=== PATIENT | female | born 2000 | race Caucasian/White ===

== ENCOUNTER 2021-10-24 09:34 | Observation (INO) | payer OTHER, MEDICAID, SELFPAY ==
--- NOTE | 2021-10-24 09:34 | LDADM ---
This patient, Scarlett Pritchard, was admitted to Labor/Delivery/Recovery 106 on 10/24/21 at 09:34. Plans for labor, pain management and were discussed with patient. Patient/family oriented to hospital policies and general routines including ID bracelet, bed and alarms, visiting hours, pain management, procedures, bathroom and other care routines, personal items, smoking policy, room service/diet and guest tray routines, security routines, and visiting hours. Patient/Family are encouraged to report perceived risks to care and to ask questions if they do not understand what they are told or what they should do. See OBIX for further documentation.
[2021-10-24 11:45] VITALS: BMI 29.3
--- NOTE | 2021-10-27 07:29 | PM.OBTRLD ---
OB - Triage/Final Diagnosis Visit Information Date of evaluation: 10/24/21 Reason for evaluation: threatened labor Comments/Additional reasons for admission: I have assessed the risk for this patient, Scarlett Pritchard, and determined that she would benefit from observation care.
== END 2021-10-24 12:25 | disposition home or self-care (01) ==
LOC: ANHLDR 12:26
PROVIDERS: Admitting Provider Obstetrics & Gynecology; PCP Pediatrics; Visit Provider Obstetrics & Gynecology
DX: O47.9 False labor, unspecified (principal); Z3A.00 Weeks of gestation of pregnancy not specified
CPT/HCPCS: G0378; G0379

== ENCOUNTER 2021-10-27 02:00 | Inpatient (IN) | payer OTHER, MEDICAID, SELFPAY ==
[2021-10-27] VITALS (119 sets, daily range): BP systolic 82–127; BP diastolic 25–86; PULSE 60–174; RESP 14–18; TEMP 36.1–36.9; O2SAT 98–100; BMI 29.6
--- NOTE | 2021-10-27 02:00 | LDADM ---
This patient, Scarlett Pritchard, was admitted to Labor/Delivery/Recovery 106 on 10/27/21 at 02:00. Plans for labor, pain management and were discussed with patient. Patient/family oriented to hospital policies and general routines including ID bracelet, bed and alarms, visiting hours, pain management, procedures, bathroom and other care routines, personal items, smoking policy, room service/diet and guest tray routines, security routines, and visiting hours. Patient/Family are encouraged to report perceived risks to care and to ask questions if they do not understand what they are told or what they should do. See OBIX for further documentation.
[2021-10-27 02:41] LABS: Basophils Percent Auto 0.3 % (0.2-1.2); Eosinophils Percent Auto 0.3 % (0-4.4); Hematocrit 32.6 % (37.0-47.0); Hemoglobin 10.8 g/dL (12.0-15.0); Immature Granulocyte Absolute 0.03 K/mm3 (0.00-0.031); Immature Granulocyte Percent A 0.4 % (0-0.5); Lymphocytes Absolute Auto 1.07 K/mm3 (0.9-3.2); Lymphocytes Percent Auto 14.7 % (18.3-44.2); Mean Corpuscular HGB Conc 33.1 g/dl (32-36); Mean Corpuscular Hemoglobin 29.1 pg (26-34); Mean Corpuscular Volume 87.9 fl (80-100); Mean Platelet Volume 10.6 fl (7.4-10.4); Monocytes Absolute Auto 0.8 K/mm3 (0.1-0.6); Monocytes Percent Auto 11.2 % (2.6-8.5); Neutrophils Absolute Auto 5.3 K/mm3 (1.3-6.7); Neutrophils Percent Auto 73.1 % (45.5-73.1); Platelet Count Result 208 k/mm3 (150-375); Red Blood Count 3.71 M/mm3 (4.2-5.4); White Blood Count 7.3 K/mm3 (4.5-10.0)
[2021-10-27] MEDS: LACTATED RINGERS 1,000 ML 125 ML IV CONT ×2 (02:50→03:34)
--- NOTE | 2021-10-27 03:19 | WPDANESEPP ---
Anes - Eval Pre Procedure Procedure: Labor epidural Date/Time: 10/27/21 03:19 Surgeon: Alpesh Preop Diagnosis: Abd pain with contractions Pre Op Diagnosis: leaking fluid Patient Data Age: 21 Gender: F Height: 1.7 m Weight: 85.73 kg Last Vital Signs Temp 98.3 F 10/27/21 02:32 Pulse 80 10/27/21 03:16 BP 109/71 10/27/21 03:16 Pulse Ox 99 10/27/21 03:18 O2 Del Method Room Air 10/27/21 02:31 Allergies Allergy/AdvReac Type Severity Reaction Status Date / Time No Known Allergies Allergy Verified 10/24/21 12:35 Home Medications Medication Instructions Recorded Confirmed Type prenat.vits,shannan,ite-nfxn-vhbju 1 tablet PO DAILY 10/27/21 10/27/21 History Laboratory Tests 10/27/21 10/27/21 02:32 02:32 WBC 7.3 K/mm3 K/mm3 (4.5-10.0) RBC 3.71 M/mm3 L M/mm3 (4.2-5.4) Hgb 10.8 g/dL L g/dL (12.0-15.0) Hct 32.6 % L % (37.0-47.0) MCV 87.9 fl fl (80-100) MCH 29.1 pg pg (26-34) MCHC 33.1 g/dl g/dl (32-36) RDW 14.0 % % (11.5-14.5) Plt Count 208 k/mm3 k/mm3 (150-375) MPV 10.6 fl H fl (7.4-10.4) Immature Gran % (Auto) 0.4 % % (0-0.5) Neut % (Auto) 73.1 % % (45.5-73.1) Lymph % (Auto) 14.7 % L % (18.3-44.2) Sully % (Auto) 11.2 % H % (2.6-8.5) Eos % (Auto) 0.3 % % (0-4.4) Baso % (Auto) 0.3 % % (0.2-1.2) Lymph # (Auto) 1.07 K/mm3 K/mm3 (0.9-3.2) Sully # (Auto) 0.8 K/mm3 H K/mm3 (0.1-0.6) Eos # (Auto) 0.0 K/mm3 K/mm3 (0-0.3) Baso # (Auto) 0.0 K/mm3 K/mm3 (0.0-0.1) Abs Immat Gran (auto) 0.03 K/mm3 K/mm3 (0.00-0.031) Absolute Neuts (auto) 5.3 K/mm3 K/mm3 (1.3-6.7) Absolute Nucleated RBC 0.0 K/mm3 K/mm3 (0.0-0.012) Nucleated RBC % 0.0 % % (0.0-0.2) RPR Pending Patient hx anesthesia problems: none Family hx anesthesia problems: none Results Review: All pre-operative results and documents have been reviewed as part of the pre-operative evaluation. [facility] Past Medical History Medical History Overweight (BMI 25.0-29.9) and not yet delivered Social History Social History Smoking status: Never smoker Substance use: never Spiritual care concerns: No Exam Day of Procedure 10/27/21 03:19 Patient weight: overweight Lungs: clear to auscultation Airway: Mallampati scale class II Neurological: alert and oriented
--- NOTE | 2021-10-27 06:42 | WPDOBADMIT ---
Obstetrics - Admit Note Admission Note: record reviewed. No pertinent additions to the history and/or any subsequent changes in the physical findings that are not consistent with the expected course of the were found. Additions to the history and/or subsequent changes in the physical findings follow. None. /-1 ctx q 2-7 starting pitocin FHT category 1 anticipate
[2021-10-27] MEDS: OXYTOCIN 30 UNITS/NS 500 ML 30 UNITS/500 ML BAG IV CONT (06:56)
--- NOTE | 2021-10-27 08:36 | P.PCNOB_ITS ---
OB - Delivery Note Procedure Delivery date: 10/27/21 Procedure: Induction method: None Delivery augmentation: Pitocin Delivery monitor: External FHT and External Uterine Route of delivery: Episiotomy description: None Laceration Description: Periurethral (periclitoral, not repaired as hemostatic) Quantitative Blood Loss (ml): 330 Anesthesia type: Epidural Disposition: Floor Narrative: With adequate expulsive efforts by the mother, the baby's head was delivered OA. The baby's anterior shoulder was delivered under the pubic symphysis without difficulty. The posterior shoulder and the rest of the baby delivered without difficulty. The infant was placed on the mothers chest and suctioned and stimulated. The cord was clamped and cut after 30 seconds. Mother and baby both stable. [place] Baby Date of : 10/27/21 Time of : 08:26 Weeks of gestation at delivery: 39 gender: Female Weight (pounds): 7 Weight (ounces): 1 presentation: vertex Placenta delivery description: Spontaneous Cord Vessel Description: 3 Vessels and Delayed Cord Clamping score one minute: 8 score five minutes: 9
[2021-10-27] MEDS: BENZOCAINE 20% AER SPR (*SP) 56 GM CAN 1 SPRAY TOPICAL (10:26)
[2021-10-27] MEDS: WITCH HAZEL 40 PADS 1 PAD TOPICAL (10:26)
--- NOTE | 2021-10-27 10:59 | OBPPTRN ---
Patient transferred to post room # 278 via wheelchair. and Support person present. Oriented to unit, room, information board, rooming in, admission packet and security measures. PT introductions made and plan of care discussed per post , pain management, daily care activities and breast feeding. NO barriers to learning identified at this time. PT received instructions this shift via one to one discussion, mom baby care guide and demonstrations. Patient verbalizes understanding.
[2021-10-27 12:49] LABS: Rapid Plasma Reagin Non-Reactive (NonReactive)
[2021-10-27] MEDS: ACETAMINOPHEN 325 MG TABLET 650 MG PO (12:52)
[2021-10-27] MEDS: IBUPROFEN 600 MG TABLET PO (12:53)
[2021-10-27] MEDS: LANOLIN (LANSINOH) 7.5 GM CREAM 1 APPLIC TOPICAL (12:54)
[2021-10-27] MEDS: MULTIVIT/MIN/PREN/FOL AC/IRON TABLET 1 TAB PO (12:54)
--- NOTE | 2021-10-27 14:47 | PC.NURSE ---
[id number] Mother verbalizes she is able to independently latch with appropriate positioning/alignment. She denies any nipple discomfort and is responsively . Infant is currently meeting outcomes for weight, output, jaundice and feeding frequencies of 8-12 times in 24 hours. Mother declines any additional assistance/education at this time. Mother is encouraged to call for assistance if her infant doesn?t latch or there is discomfort with latching. Mother voiced understanding of information shared and mom and baby guide reviewed for additional resource information . Reported to the primary RN.
[2021-10-27] MEDS: DOCUSATE SODIUM 100 MG CAPSULE PO (17:43)
--- NOTE | 2021-10-28 02:31 | OBPPTRN ---
Patient transferred to post room # 281 via wheelchair. Support person present. Oriented to unit, room, information board, rooming in, admission packet and security measures. Patient verbalizes understanding.
[2021-10-28 03:44] VITALS: BP 102/64; PULSE 70; RESP 14; TEMP 36.6; O2SAT 99
[2021-10-28 05:17] LABS: Hematocrit 31.3 % (37.0-47.0); Hemoglobin 10.1 g/dL (12.0-15.0)
--- NOTE | 2021-10-28 07:15 | PM.OBPNVD ---
OB - PN: Subj Subjective Date/time seen: 10/28/21 07:15 Patient comments: no complaints, pain well controlled, incisional pain, tolerating diet and flatus present OB - PN: Obj Data Labs CBC & Chem 7: 10/28/21 04:18 Labs: Laboratory Results - last 24 hr 10/27/21 10/28/21 02:32 04:18 Hgb 10.1 L Hct 31.3 L RPR Non-reactive OB - PN A/P Plan day: 1 Plan: routine care Comments: No problems, routine care, to d/c Time Spent With Patient Time: Total time spent is greater than 50% in coordination of care (as documented) at patient's floor/unit and/or counseling patient: Exam Const: General: comfortable, no acute distress and alert Resp: Effort & Inspection: normal respiratory effort Auscultation: no crackles, no rales and no rhonchi Cardio: Rate: regular rate Heart sounds: no click, no murmurs and no rubs GI: Inspection: non-distended GI Palp: No Tenderness to palpation present (GI) Auscultation: normal bowel sounds Other: Incision - CDI Extrem: General: normal to inspection, no pedal edema and no calf tenderness
--- NOTE | 2021-10-28 07:16 | PM.OBDSVD ---
DS: Admitting Diagnosis Discharge Date 10/23/21 Admitting Diagnosis term DS: Discharge Diagnosis Discharge Diagnosis (1) Term : Code(s): Z34.90 - Encounter for supervision of normal , unspecified, unspecified trimester Status: Acute OB - DS: Summary OB Procedures : None OB Procedures Intrapartum: Spontaneous Vag Delivery OB Procedures: : None Time Spent with Patient Time attestation: Total time spent providing and/or coordinating discharge services: DS: Data Data Completed and Pending Labs on day of discharge: Labs from last 24 hours 10/28/21 10/27/21 04:18 02:32 Hgb 10.1 L Hct 31.3 L RPR Non-reactive Discharge Plan Discharge Discharging Clinician: Cheryle Betts Patient Disposition: Home, Self-Care Activity: pelvic rest Diet: regular Patient Instructions: Antibiotic Form Stand Alone Forms: General Discharge Information Follow-up/Referrals: Cheryle Betts MD [Physician] - Discharge Medications: Continued Vitamin Tablet 1 tablet PO DAILY Date of admission: 10/27/21 02:00 Primary Care Provider: Tiburcio,Naz Lobato Admitting Provider: Cheryle Betts Attending physician on admission: Cheryle Betts Condition: Stable
[2021-10-28 08:00] VITALS: PULSE 70; RESP 14; O2SAT 99
[2021-10-28] MEDS: MULTIVIT/MIN/PREN/FOL AC/IRON TABLET 1 TAB PO (08:11)
[2021-10-28] MEDS: DOCUSATE SODIUM 100 MG CAPSULE PO (08:11)
[2021-10-28 08:30] VITALS: BP 109/60; PULSE 78; RESP 16; TEMP 36.5; O2SAT 100
--- NOTE | 2021-10-28 11:06 | WPDANLDPN2 ---
Anes-Prog Note L&D Date/Time: 10/28/21 11:06 Neuraxial method: epidural Epidural/Spinal procedure site: clean & non-tender Neuro status: Neuro function grossly intact. Vital Signs: Last Vital Signs Temp 97.7 F 10/28/21 08:30 Pulse 78 10/28/21 08:30 Resp 16 10/28/21 08:30 BP 109/60 10/28/21 08:30 Pulse Ox 100 10/28/21 08:30 O2 Del Method Room Air 10/28/21 08:00 Pain score (VAS): 0 I/O: Intake & Output 10/27/21 10/28/21 10/28/21 23:59 07:59 15:59 Intake Total 500 Balance 500 Patient feedback: Patient satisfied with anesthetic care.
[2021-10-28] MEDS: ACETAMINOPHEN 325 MG TABLET 650 MG PO (12:09)
--- NOTE | 2021-10-28 12:40 | PC.NURSE ---
Patient was given the opportunity to view the discharge video Mother & Baby Care, The First Two Weeks and to ask questions. Patient declined viewing the video and has been given the mother/baby guide for home reference.
[2021-10-29 09:04] VITALS: BP 109/64; PULSE 86; RESP 20; TEMP 36.8; O2SAT 100
== END 2021-10-28 13:23 | disposition home or self-care (01) | DRG 807 ==
LOC: ANHLDR 04:23 → ANHOB2 11:14
PROVIDERS: Obstetrics & Gynecology; Admitting Provider Obstetrics & Gynecology; PCP Pediatrics; Visit Provider Obstetrics & Gynecology
DX: O71.82 Other specified trauma to perineum and vulva (principal); Z37.0 Single live birth; Z3A.39 39 weeks gestation of pregnancy
CPT/HCPCS: 36415; 85014; 85018; 85025; 86592; 86850; 86900; 86901; A9270; G0378; G0379; J2590; J2795; J7120

== ENCOUNTER 2024-09-28 19:59 | Emergency (ER) | payer SELFPAY ==
--- OUTSIDE RECORDS SUMMARY | 2024-09-28 20:03 | XMS_ITS | Encounter Summary ---
Author Organization [facility] Address [address] [place] [address] Care Team Providers Care Mason Foreman/Superintendant Name Role Phone Naz Dey MD Primary Care Provider [phone] Encounter Details Date Type Department Care Team (Late st Contact Info) Description 2001 Outpatient Historical [facility] Pediatric[facility] - [facility] [address] [address] Marisol Brock MD [id number] [place] [address] Social History Tobacco Use Types Packs/Day Years Used Date Smoking Tobacco: Never Assessed Comments Unknown Sex and Gender Information Value Date Recorded Sex Assigned at Not on file 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
--- OUTSIDE RECORDS SUMMARY | 2024-09-28 20:03 | XMS_ITS | Clinical Summary ---
Author Organization [facility] Address [address] [place] [address] Care Team Providers Care Journeyman Plumber Name Role Phone Chela Anguiano MD Primary Care Provider Allergies No known active allergies Medications No known medications Active Problems Problem Noted Date Diagnosed Date Annual physical exam 06/07/2023 Assessment & Plan (06/07/2023 4:19 PM COTTON BALL MACHINE TENDER): Doing well. BMI: 2401 (Normal) Recommend daily multivitamin. Consider supplements for vitamin B12 given vegetarian type diet. Routine labs ordered - BMP, A1C, Lipid, GC chlamydia screen Preventative Screening Due: Pap smear due and scheduled Dietary and exercise recommendations given today. Recommend exercise at least 30 minutes moderate to vigorous exercise and some strength training most days of the week. (minimum 150 minutes weekly) Discussed MyPlate recommendations and increasing fruits and vegetables Vaccines due - Flu declined RTC annually for f/u Vitamin D deficiency 06/07/2023 Assessment & Plan (06/07/2023 4:18 PM COTTON BALL MACHINE TENDER): Chronic. Labs ordered Migraine headache 11/10/2014 Assessment & Plan (06/07/2023 4:17 PM COTTON BALL MACHINE TENDER): Chronic and stable.. MRI 2014 Minimally low lying cerebellar tonsils, otherwise, no other abnormal brain MRI findings. 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 11/06/2010 Abdominal pain 11/06/2010 Immunizations Immunization Administration Dates Next Due MMR 09/24/2018(Deferred: Contraindic ation) Tdap 09/24/2018(Deferred: Contraindic ation) Medical History Medical History Date Comments Migraine takes OTC medica tions Family History Medical History Relation Name Comments Alcohol abuse Other 1 Family history of Alcoholism; Arthritis Other 2 Family history of Arthritis; Cancer Other 3 Family history of Cancer; Diabetes Other 4 Family history of Diabetes mellitus; Gout Other 5 Family history of Gout; Heart disease Other 6 Family history of Heart disease; Hypertension Other 7 Family history of Hypertension; Stroke Other 8 Family history of Stroke; Relation Name Status Comments Other 1 Other 2 Other 3 Other 4 Other 5 Other 6 Other 7 Other 8 Social History Tobacco Use Types Packs/Day Years Used Date Smoking Tobacco: Never Smokeless Tobacco: Never Tobacco Cessation:Counseling Given: Not Answered Alcohol Use Standard Drinks/Week Comments No 0 (1 standard drink = 0.6 oz pur e alcohol) AUDIT-C Answer Date Recorded Q1: How often do you have a drink containing alc ohol? Monthly or less 06/07/2023 Q2: How many drinks containi ng alcohol do you have on a typical day when you are drinking? 1 or 2 06/07/2023 Q3: How often do you have si x or more drinks on one occasion? Never 06/07/2023 PHQ-2 Answer Date Recorded PHQ-2 Total Score (If total score is 3 or more points, staff should administer the PHQ-9) 0 06/07/2023 Comments Unknown Sex and Gender Information Value Date Recorded Sex Assigned at Not on file Legal Sex Female 6:49 AM COTTON BALL MACHINE TENDER Gender Identity Not on file Sexual Orientation Not on file Obstetrics History Para Term AB IAB SAB Ectopic Multiple Livin g Live Births 1 1 1 0 1 1 Date Outcome GA Total Labor Labor/2nd/3rd Weight Sex Type Anes PTL Juliana A1 A5 Name Clin 2018 Term 40w 0d 4h 09m 1h 19m/2h 44m/0h 06m 3.52 kg (7 lb 12.2 oz) M Vag-S pont Epidur al N Livin g 9 9 NATALIE KURTZ, Margie Pizarro MD Delivery Location:This Facil ity ([facility]) Last Filed Vital Signs Vital Sign Reading Time Taken Comments Blood Pressure 94/56 06/07/2023 3:43 PM COTTON BALL MACHINE TENDER Pulse 67 06/07/2023 3:43 PM COTTON BALL MACHINE TENDER Temperature 36.4 C (97.5 F) 06/07/2023 3:43 PM COTTON BALL MACHINE TENDER Respiratory Rate 16 06/07/2023 3:43 PM COTTON BALL MACHINE TENDER Oxygen Saturation 99% 06/07/2023 3:43 PM COTTON BALL MACHINE TENDER Inhaled Oxygen Concentration - - Weight 69.9 kg (154 lb) 06/07/2023 3:43 PM COTTON BALL MACHINE TENDER Height 170.2 cm (5' 7 ) 06/07/2023 3:43 PM COTTON BALL MACHINE TENDER Body Mass Index 24.12 06/07/2023 3:43 PM COTTON BALL MACHINE TENDER Plan of Treatment Health Maintenance Due Date Last Done Comments Cervical Cancer Screening 2001 Hepatitis C Screening 2001 Meningococcal B Vaccine (1 of 2 - Standard) 2017 Hepatitis B Screening 2019 Depression Screening 06/07/2024 06/07/2023 Regular Well Visit/Exam 18-64 06/07/2024 06/07/2023 Chlamydia and Gonorrhea (GC/CT) Screening 06/08/2024 06/08/2023 Influenza Vaccine (Season Ended) 2025 01/14/2014, 01/14/2014 DTaP/Tdap/Td Vaccine (8 - Td or Tdap) 08/13/2028 08/13/2018, 10/31/2012, 11/28/2006, Additional history exists Pneumococcal vaccine <65 Aged Out 2001, 04/14 No longer eligible based on patient's age to complete this topic Varicella Vaccines Completed 11/28/2006, 02/26/2002 HPV Vaccines Completed 07/02/2013, 12/13, 10/31/2012 Procedures Procedure Name Priority Date/Time Associated Diagnosis Comments N. GONORRHOEAE/C. TRACHOMATIS AMPLIFICATION Routine 06/08/2023 9:12 AM COTTON BALL MACHINE TENDER Annual physical exam from Last 3 Months or Most Recently Relevant to Health Maintenance Results * N. gonorrhoeae/C. trachomatis Amplification Urine (06/08/2023 9:12 AM COTTON BALL MACHINE TENDER) C. trachomatis Not Detected ADEEL VITALE Comment:Testing performed by : [facility], [address], [place]., [address] N. gonorrhoeae Not Detected ADEEL VITALE Comment: Interpretive Data This assay detects Chlamydia trachomatis and Neisseria gonorrhoeae by nucleic acid amplification testing (NAAT). This assay has been cleared by the [place] Food and Drug administration. The performance characteristics of this test have been verified by the [facility] Molecular Infectious Disease laboratory. The performance characteristics of this test have not been evaluated in individuals less than 14 years of age. Current Interpretive Data was last revised on 2023. Testing performed by: [facility], [address] [place]., [address] Urine (None) 06/08/2023 9:12 AM COTTON BALL MACHINE TENDER 06/08/2023 8:19 PM COTTON BALL MACHINE TENDER Chela Anguiano MD LAB MICROBIOLOGY - GENERAL O RDERABLES Final Result [facility] [id number] Department [place] [address] from Last 3 Months or Most Recently Relevant to Health Maintenance Insurance [facility] CHOICE PLUS [facility] PPO [facility] HMO/PPO Address: [facility] [id number] [place] [address] IDPA [id number] CHOICE PLUS [facility] PPO IDPA Advance Directives For more information, please contact: [phone] * Full Code (Latest Code Status on File) Date Activated Date Inactivated Comments 09/22/2018 5:22 PM 09/24/2018 7:35 PM Full CPR in case of cardiopulmonary arrest Care Teams Journeyman Plumber Relationship Specialty Start Date End Date Chela Anguiano MD [address] [address] PCP - General Family Medicine 04/18/23
--- OUTSIDE RECORDS SUMMARY | 2024-09-28 20:03 | XMS_ITS | Referral Summary ---
Author Organization [facility] Address [address] [place] [address] Care Team Providers Care Second Hand Paper Machine Name Role Phone Chela Anguiano MD Primary Care Provider Allergies No known active allergies Medications No known medications Active Problems Problem Noted Date Diagnosed Date Annual physical exam 06/07/2023 Assessment & Plan (06/07/2023 4:19 PM CANCER REGISTRY COORDINATOR): Doing well. BMI: 2401 (Normal) Recommend daily [...] 06/07/2023 Assessment & Plan (06/07/2023 4:18 PM CANCER REGISTRY COORDINATOR): Chronic. Labs ordered Migraine headache 11/10/2014 Assessment & Plan (06/07/2023 4:17 PM CANCER REGISTRY COORDINATOR): Chronic and stable.. MRI 2014 Minimally low lying cerebellar tonsils, otherwise, no other abnormal brain MRI findings. 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 11/06/2010 Abdominal pain 11/06/2010 Immunizations Immunization Administration Dates Next Due MMR 09/24/2018(Deferred: Contraindic ation) Tdap 09/24/2018(Deferred: Contraindic ation) Social History Tobacco Use Types Packs/Day Years [...] on file Legal Sex Female 6:49 AM CANCER REGISTRY COORDINATOR Gender Identity Not on file Sexual Orientation Not on file Last Filed Vital Signs Vital Sign Reading Time Taken Comments Blood Pressure 94/56 06/07/2023 3:43 PM CANCER REGISTRY COORDINATOR Pulse 67 06/07/2023 3:43 PM CANCER REGISTRY COORDINATOR Temperature 36.4 C (97.5 F) 06/07/2023 3:43 PM CANCER REGISTRY COORDINATOR Respiratory Rate 16 06/07/2023 3:43 PM CANCER REGISTRY COORDINATOR Oxygen Saturation 99% 06/07/2023 3:43 PM CANCER REGISTRY COORDINATOR Inhaled Oxygen Concentration - - Weight 69.9 kg (154 lb) 06/07/2023 3:43 PM CANCER REGISTRY COORDINATOR Height 170.2 cm (5' 7 ) 06/07/2023 3:43 PM CANCER REGISTRY COORDINATOR Body Mass Index 24.12 06/07/2023 3:43 PM CANCER REGISTRY COORDINATOR Plan of Treatment Not on file Procedures Procedure Name Priority Date/Time Associated Diagnosis Comments N. GONORRHOEAE/C. TRACHOMATIS AMPLIFICATION Routine 06/08/2023 9:12 AM CANCER REGISTRY COORDINATOR Annual physical exam from Last 3 Months or Most Recently Relevant to Health Maintenance Results * N. gonorrhoeae/C. trachomatis Amplification Urine (06/08/2023 9:12 AM CANCER REGISTRY COORDINATOR) C. trachomatis Not Detected ADEEL VITALE Comment:Testing performed by : [facility], [address] [place]., [address] N. gonorrhoeae Not Detected ADEEL VITALE Comment: Interpretive Data This assay detects Chlamydia trachomatis and Neisseria gonorrhoeae by nucleic acid amplification testing (NAAT). This assay has been cleared by the [place] Food and Drug administration. The performance characteristics of this test have been verified by the [facility] Molecular Infectious Disease laboratory. The performance characteristics of this test have not been evaluated in individuals less than 14 years of age. Current Interpretive Data was last revised on 2023. Testing performed by: [facility], [address] [place]., [address] Urine (None) 06/08/2023 9:12 AM CANCER REGISTRY COORDINATOR 06/08/2023 8:19 PM CANCER REGISTRY COORDINATOR Chela Anguiano MD LAB MICROBIOLOGY - GENERAL O RDERABLES Final Result Performing Organization Address City/State/ZIP [place] wy Phone Number [facility] [id number] [place] [address] from Last 3 Months or Most Recently Relevant to Health Maintenance Insurance [facility] PL[facility]PPO Address: [address] [address] [place] [address] [facility] IDPA [facility]PPO Address: [address] [address] [place] [address] [facility] P[facility] IDPA Advance Directives For more information, please contact: [phone] * Full Code (Latest Code Status on File) Date Activated Date Inactivated Comments 09/22/2018 5:22 PM 09/24/2018 7:35 PM Full CPR in case of cardiopulmonary arrest Care Teams Second Hand Paper Machine Relationship Specialty Start Date End Date Chela Anguiano MD [address] [place] [address] PCP - General Family Medicine 04/18/23
--- OUTSIDE RECORDS SUMMARY | 2024-09-28 20:03 | XMS_ITS | Data Portability ---
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 Discussed plan. Not available 10/22/2021 11:35:13 11/22/2021 11/22/2021 Normal exam May resume normal activities contraceptive plan-- nexplanon Discussed R/B/A of Nexplanon, including procedure for insertion and removal, efficacy, and bleeding profile associated with it. Questions answered. insertion 1-2w FU for WWE and pap in Feb Not available 11/22/2021 15:59:51 Plan of Treatment Reminders Order Date Submit Date Provider Last Modified By Organization Details Last Modified Time Details Appointments None recorded . Lab vitamin D, 25-hydro xy, total, serum 2021 [facility] (Lab), [address] [place], [address], 05:40:17 CBC w/ auto diff 2021 [facility] (Lab), [address] [place], [address], 05:40:15 TSH, serum or plasma 2021 [facility] (Lab), [address] [facility], [place], [address], 05:40:17 CMP, serum or plasma 2021 022 GIANNA [facility] (Lab), [address] [facility], [place], [address], 05:40:16 pregnanc y test, urine 2021 022 sanchez [place], [facility] [address], [address], [place], [address], 13:02:25 Referral None recorded . Procedures None recorded . Surgeries None recorded . Imaging None recorded . Medication Orders None recorded . Patient TargetsNo targets recorded. Patient InstructionsNo instructions recorded. Reason for Referral None Reported. Results Created Date Observation Date Name Description Value Unit Range Abnormal Flag Note LastModifiedBy Organization Detail LastModifiedTime 10/07/1910/06/2021 CULTU RE: GROUP B STREP SCREE N, REFLE X SUSCE PTIBI LITY result report SEE RESULT S BELOW Test: Cultu re: Group B Strep , Refle x Susce ptibi lity ([facility] ) Speci men Sourc e: Vagin a/Rec tim Speci men Type: Vagin al/Re ctal Speci men Date: 2021 2:08 PM Resul t Date: 2021 4:27 PM Resul t Statu s: Final resul t Abnor mal: No Resul ting Lab: [facility] [address] [facility] [address] Tel: CULTU RE ----- ----- ----- --- No Group B strep isola dameon at 2 days (enrique ctive broth enhan cemen t) Not Available [facility] (Lab) [address] [facility], [place], [address], 10/09/2021 17:32:04 12/01/19 22 11/30/2021 pregn mil test, urine HCG negati ve Not Available [place] [address], [place], [address], 11/30/2021 13:02:09 02/24/2002/23/2022 CBC W/DIF F WBC 5.1 10'3/ uL 4.5-13 .0 Not Available [facility] [address], [place], [address], 02/24/2022 05:40:14 02/24/20 22 02/23/2022 CBC W/DIF F RBC 4.34 10'6/ uL (based on docume nted legal sex) 4.10-5 .30 Not Available [facility] [address], [place], [address], 02/24/2022 05:40:14 02/24/20 22 02/23/2022 CBC W/DIF F HGB 12.1 g/dL (based on docume nted legal sex) 11.9-1 5.8 Not Available [facility] [address] [place], [place] [address], [place], [address], 02/24/2022 05:40:14 02/24/20 22 02/23/2022 CBC W/DIF F HCT 37.1 % (based on docume nted legal sex) 37.4-4 8.3 low Not Available [facility] [address], [place], [address], 02/24/2022 05:40:14 02/24/20 22 02/23/2022 CBC W/DIF F MCV 85.5 fL 82.0-9 9.0 Not Available [facility] [address], [place], [address], 02/24/2022 05:40:14 02/24/20 22 02/23/2022 CBC W/DIF F MCH 27.9 pg 27.0-3 3.0 Not Available [facility] [address] [place] [address], [address], 02/24/2022 05:40:14 02/24/20 22 02/23/2022 CBC W/DIF F MCHC 32.6 g/dL 32.0-3 6.0 Not Available [facility] [address] [place] [address], [address], 02/24/2022 05:40:14 02/24/20 22 02/23/2022 CBC W/DIF F RDW 12.1 % 11.0-1 5.0 Not Available [facility] [address] [place] [address], [address], 02/24/2022 05:40:14 02/24/20 22 02/23/2022 CBC W/DIF F plt 283 10'3/ uL 150-45 0 Not Available [facility] [address] [place] [address], [address], 02/24/2022 05:40:14 02/24/20 22 02/23/2022 CBC W/DIF F MPV 11.3 fL 9.8-12 .7 Not Available [facility] [address] [place] [address], [address], 02/24/2022 05:40:14 02/24/20 22 02/23/2022 CBC W/DIF F NRBC's 0.0 % 0 Not Available [facility] [address] [place] [address], [address], 02/24/2022 05:40:14 02/24/20 22 02/23/2022 CBC W/DIF F absolute NRBCs 0.0 10'3/ uL 0 02/24 3:56 AM: P indic ates parti al resul ts on a panel have been relea sed. Addit ional resul ts will helen w. 02/24 4:37 AM: This resul t has been final verif ied. No addit ional or lockett ed resul ts are expec dameon. Not Available [facility] [address] [place], [address], 02/24/2022 05:40:14 02/24/20 22 02/23/2022 CMP(C OMPRE HENSI VE METAB OLIC PANEL ) sodium 140 mmol/ L 133-14 6 Not Available [facility] [address] [place], [address], 02/24/2022 05:40:16 02/24/2002/23/2022 CMP(C OMPRE HENSI VE METAB OLIC PANEL ) potassium 4.2 mmol/ L 3.5-5. 1 Not Available [facility] [address] [place], [address], 02/24/2022 05:40:16 02/24/20 22 02/23/2022 CMP(C OMPRE HENSI VE METAB OLIC PANEL ) chloride 105 mmol/ L 98-107 Not Available [facility] [address] [place], [address], 02/24/2022 05:40:16 02/24/20 22 02/23/2022 CMP(C OMPRE HENSI VE METAB OLIC PANEL ) carbon dioxide 29 mmol/ L 21-31 Not Available [facility] [address] [place], [address], 02/24/2022 05:40:16 02/24/20 22 02/23/2022 CMP(C OMPRE HENSI VE METAB OLIC PANEL ) anion gap 6 mmol/ L 4-13 Not Available [facility] [address] [place], [address], 02/24/2022 05:40:16 02/24/20 22 02/23/2022 CMP(C OMPRE HENSI VE METAB OLIC PANEL ) blood urea nitrogen 14 mg/dL 7-25 Not Available [facility] [address] [place], [address], 02/24/2022 05:40:16 02/24/20 22 02/23/2022 CMP(C OMPRE HENSI VE METAB OLIC PANEL ) creatinine 0.79 mg/dL 0.60-1 .30 Not Available [facility] [address] [place], [place] [address], [address], 02/24/2022 05:40:16 02/24/20 22 02/23/2022 CMP(C OMPRE HENSI VE METAB OLIC PANEL ) egfrcr (CKD-epi 2020) >90 mL/mi n/1.7 3_m2 >=60 Not Available [facility] [address] [place], [place] [address], [address], 02/24/2022 05:40:16 02/24/20 22 02/23/2022 CMP(C OMPRE HENSI VE METAB OLIC PANEL ) calcium 9.3 mg/dL 8.3-10 .5 Not Available [facility] [address] [place], [place] [address], [address], 02/24/2022 05:40:16 02/24/20 22 02/23/2022 CMP(C OMPRE HENSI VE METAB OLIC PANEL ) glucose 71 mg/dL 70-100 Not Available [facility] [address] [place], [place] [address], [address], 02/24/2022 05:40:16 02/24/20 22 02/23/2022 CMP(C OMPRE HENSI VE METAB OLIC PANEL ) protein, total 7.0 g/dL 6.4-8. 3 Not Available [facility] [address] [place], [address], 02/24/2022 05:40:16 02/24/20 22 02/23/2022 CMP(C OMPRE HENSI VE METAB OLIC PANEL ) albumin 4.3 g/dL 3.5-5. 0 Not Available [facility] [address] [place] [address], [address], 02/24/2022 05:40:16 02/24/20 22 02/23/2022 CMP(C OMPRE HENSI VE METAB OLIC PANEL ) ALT 15 units /L 9-43 Not Available [facility] [address] [place] [address], [address], 02/24/2022 05:40:16 02/24/20 22 02/23/2022 CMP(C OMPRE HENSI VE METAB OLIC PANEL ) alkaline phosphatase 62 units /L 34-104 Not Available [facility] [address] [place] [address], [address], 02/24/2022 05:40:16 02/24/2002/23/2022 CMP(C OMPRE HENSI VE METAB OLIC PANEL ) AST 13 units /L 13-39 Not Available [facility] Disease [address] [place] [address], [address], 02/24/2022 05:40:16 02/24/2002/23/2022 CMP(C OMPRE HENSI VE METAB OLIC PANEL ) bilirubin, total 0.4 mg/dL 0.2-1. 2 Not Available [facility] Disease [address] [place] [address], [address], 02/24/2022 05:40:16 02/24/20 22 02/23/2022 TSH, REFLE X FREE T4 TSH 0.85 uIU/m L 0.30-5 .33 Not Available [facility] Disease [address] [place] [address], [address], 02/24/2022 05:40:17 02/24/20 22 02/23/2022 VITAM IN D, 25-OH (TOTA L D2/D3 ) vitamin D, 25-hydroxy, total 19.8 NG/mL 30.0-1 00.0 [address] [place] [facility]ive of Defic iency : <20 ng/mL [facility] stive of Insuf ficie ncy: 20-29 ng/mL [facility] stive of Suffi cienc y: 30-10 0 ng/mL Sug[facility] stive of Toxic ity: >150 ng/mL Not Available [facility] [address] [place] [address], [address], 02/24/2022 05:40:17 02/24/20 22 02/23/2022 BLOOD SMEAR EXAM (ONLY ) neutrophils 42.0 % 37.0-7 2.0 Not Available [facility] [address] [place] [address], [address], 02/24/2022 05:40:18 02/24/20 22 02/23/2022 BLOOD SMEAR EXAM (ONLY ) lymphocytes 45.0 % 24.0-5 4.0 Not Available [facility] [address] [place] [address], [address], 02/24/2022 05:40:18 02/24/20 22 02/23/2022 BLOOD SMEAR EXAM (ONLY ) reactive lymphocytes 4.0 % Not Available [facility] [address] [place] [address], [address], 02/24/2022 05:40:18 02/24/20 22 02/23/2022 BLOOD SMEAR EXAM (ONLY ) monocytes 2.0 % 4.0-14 .0 low Not Available [facility] [address] [place] [address], [address], 02/24/2022 05:40:18 02/24/20 22 02/23/2022 BLOOD SMEAR EXAM (ONLY ) eosinophils 5.0 % 0.0-5. 0 Not Available [facility] [address] [place], [address], 02/24/2022 05:40:18 02/24/20 22 02/23/2022 BLOOD SMEAR EXAM (ONLY ) basophils 2.0 % 0.0-2. 0 Not Available [facility] [address] [place], [place] [address], [address], 02/24/2022 05:40:18 02/24/2002/23/2022 BLOOD SMEAR EXAM (ONLY ) absolute neutrophils 2.1 10'3/ uL 1.7-9. 7 Not Available [facility] [address] [place], [place] [address], [address], 02/24/2022 05:40:18 02/24/20 22 02/23/2022 BLOOD SMEAR EXAM (ONLY ) absolute lymphocytes 2.3 10'3/ uL 1.2-7. 8 Not Available [facility] [address] [place], [place] [address], [address], 02/24/2022 05:40:18 02/24/2002/23/2022 BLOOD SMEAR EXAM (ONLY ) absolute reactive lymphocytes 0.2 10'3/ uL Not Available [facility] [address] [place], [place] [address], [address], 02/24/2022 05:40:18 02/24/2002/23/2022 BLOOD SMEAR EXAM (ONLY ) absolute monocytes 0.1 10'3/ uL 0.2-1. 4 low Not Available [facility] [address] [place], [place] [address], [address], 02/24/2022 05:40:18 02/24/20 22 02/23/2022 BLOOD SMEAR EXAM (ONLY ) absolute eosinophils 0.3 10'3/ uL 0.0-0. 7 Not Available [facility] [address] [place], [address], 02/24/2022 05:40:18 02/24/20 22 02/23/2022 BLOOD SMEAR EXAM (ONLY ) absolute basophils 0.1 10'3/ uL 0.0-0. 3 Not Available [facility] [address] [place], [address], 02/24/2022 05:40:18 02/24/2002/23/2022 BLOOD SMEAR EXAM (ONLY ) platelet morphology Normal Not Available [facility] [address] [place], [place] [address], [address], 02/24/2022 05:40:18 02/24/20 22 02/23/2022 BLOOD SMEAR EXAM (ONLY ) RBC morphology Review ed normal Few enlar ged plate lets seen on smear . Not Available [facility] [address] [place], [place] [address], [address], 02/24/2022 05:40:18 02/24/20 22 02/23/2022 BLOOD SMEAR EXAM (ONLY ) alejandro cells Few (none) abnormal Not Available [facility] [address] [place], [place] [address], [address], 02/24/2022 05:40:18 02/24/20 22 02/23/2022 BLOOD SMEAR EXAM (ONLY ) ovalocytes Modera te (none) abnormal Not Available [facility] [address] [place], [place] [address], [address], 02/24/2022 05:40:18 Result Notes None recorded. Problems Name Problem SNOMED Code Status Onset Date Resolution Date Notes Provider Name and Address Organization Details Recorded Time [id number] Completed 022 12/24/2021 Marisela Polanco [facility], [facility] 11:33:54 Problem Notes None recorded. Procedures Surgical History Date Name Laterality Status Provider Name and Address Organization Details Recorded Time Nexplanon Insert completed LIAM Roman [address], [place], [address], [facility] 11/30/2021 13:03:57 Imaging Results None recorded. Procedure Notes None recorded. Medical Equipment None Reported. Allergies No known drug allergies Medications Name Sig Start Date Stop Date Status Note LastModified by Organization Details LastModified Time ergocalciferol (vitamin D2) 1,250 mcg (50,000 unit) capsule Take 1 capsule every week by oral route. active Not Available Not Available No t Available Vitamin active Not Available Not Available Not Available Vitals Date Recorded Body height Body mass index (BMI) Body mass index (BMI) Percentile per age and sex Systolic blood pressure Diastolic blood pressure Provider Name and Address Organization Details Last Updated DateTime 10/22/2021 167.64 cm 30.5 kg/m2 93 % 110 mm[Hg] 67 mm[Hg] Cristal Jordan [facility] 11:35:25 Date Recorded Body weight Provider Name an d Address Organization Details Last Updated DateTime 10/22/2021 57282.81000 g Israel Betts MD [address], [place], [address], [facility] 10/22/2021 19:08:02 Date Recorded Body height Body mass index (BMI) Percentile per age and sex Body mass index (BMI) Systolic blood pressure Diastolic blood pressure Provider Name and Address Organization Details Last Updated DateTime 11/22/2021 167.64 cm 84 % 26.6 kg/m2 98 mm[Hg] 59 mm[Hg] Margot Cary [facility] 15:27:30 Date Recorded Body weight Provider Name an d Address Organization Details Last Updated DateTime 11/22/2021 23515.48996 g Marisela Low [facility] 12/24/2021 11:33:51 Date Recorded Body height Body mass index (BMI) Body mass index (BMI) Percentile per age and sex Systolic blood pressure Diastolic blood pressure Provider Name and Address Organization Details Last Updated DateTime 2 167.64 cm 26.7 kg/m2 84 % 109 mm[Hg] 74 mm[Hg] Rebeca Kathleen [facility] 2 12:39:41 Date Recorded Body weight Provider Name an d Address Organization Details Last Updated DateTime 11/30/2021 59141.970768 g Marisela Low [facility] 12/24/2021 11:33:51 Date Recorded Body height Body mass index (BMI) Body mass index (BMI) Percentile per age and sex Body weight Systolic blood pressure Diastolic blood pressure Provider Name and Address Organization Details Last Updated DateTime 2 167.64 cm 27.2 kg/m2 86 % 38236.6 7 g 105 mm[Hg] 70 mm[Hg] Rebeca bonilla [facility] 2 14:49:34 Date Recorded Body height Body mass index (BMI) Percentile per age and sex Body mass index (BMI) Body weight Systolic blood pressure Diastolic blood pressure Provider Name and Address Organization Details Last Updated DateTime 2 167.64 cm 80 % 25.7 kg/m2 48297.9 1 g 95 mm[Hg] 69 mm[Hg] Rebeca bonilla [facility] 2 16:31:50 Social History Question Answer Notes LastModified by Organizat ion Details LastModified Time Tobacco Smoking Status [facility] 01/03/2022 14:37:17 Do You Have An Advance Directive? No Information n ot available 06/15/2021 Are You Blind Or Do You Have Difficulty Seeing? No [email or web address] Information n ot available 06/02/2021 What Is Your Level Of Caffeine Consumption? Occasional Information not available 06/15/2021 How Much Tobacco Do You Chew? None Information not available 06/15/2021 In The 14 Days Before Symptom Onset, Have You Had Close Contact With A Laboratory-confirm ed COVID-19 While That Case Was Ill? No [email or web address] Information n ot available 06/02/2021 In The 14 Days Before Symptom Onset, Have You Had Close Contact With A Person Who Is Under Investigation For COVID-19 While That Person Was Ill? No [email or web address] Information not available 06/02/2021 Have You Been To An Area Known To Be High Risk For COVID-19? No [email or web address] Information not available 06/02/2021 Are You Deaf Or Do You Have Serious Difficulty Hearing? No Information not available 06/02/2021 What Type Of Diet Are You Following? REGULAR [email or web address] Information n ot available 06/02/2021 What Is The Highest Grade Or Level Of School You Have Completed Or The Highest Degree You Have Received? [id number] Information not available 06/15/2021 Are There Any Guns Present In Your Home? No Information not available 06/15/2021 Have You Ever Been Counseled For Unhealthy Alcohol Use? No [email or web address] Information not available 01/03/2022 Do You Use Protection During Sex? Usually Information not available 06/15/2021 Do You Use Your Seat Belt Or Car Seat Routinely? Yes Information not available 06/02/2021 Do You Have Smoke And Carbon Monoxide Detectors In Your Home? Yes [email or web address] Information not available 06/02/2021 How Much Tobacco Do You Smoke? No Information not available 06/15/2021 Do You Use Sunscreen Routinely? Yes [email or web address] Information not available 06/02/2021 Has Tobacco Cessation Counseling Been Provided? No [email or web address] Information not available 01/03/2022 Have You Used IV Drugs? No Information not available 06/15/2021 Do You Have Difficulty Walking Or Climbing Stairs? No Information not available 01/03/2022 Sex: Unknown Functional Status Question Answer Note LastModified by Organizat ion Details LastModified Time Do you use any illicit or recreational drugs? No [email or web address] Information not available 06/02/2021 Do you or have you ever used any other forms of tobacco or nicotine? No [email or web address] Information not available 01/03/2022 What is your level of alcohol consumption? None Information not available 06/15/2021 Are you able to walk? YESWOREST [email or web address] Information not available 06/02/2021 Are you able to care for yourself? Yes Information n ot available 01/03/2022 Do you have difficulty dressing or bathing? No Information not available 01/03/2022 What is your exercise level? Moderate Information not available 06/15/2021 Mental Status Question Answer Note LastModified by Organization D etails LastModified Time Do you feel stressed (tense, restless, nervous, or anxious, or unable to sleep at night)? [id number] Information not available 06/15/2021 Family History Relationship Description Onset Age of this Age Resolved Age Notes LastModified by Organization Details LastModified Time Mother High risk Not available 06/02 12:26:21 Mother Asthma [email or web address] Not available 06/02/2021 12:26:31 Sister Asthma [email or web address] Not available 06/02/2021 12:26:31 Medical History Condition Response Other N Blood Transfusion N Dermatologic Disorders N Gestational Diabetes N Anxiety Disorder N Autoimmune disease N Arthritis N Polyps N Infertility N Acid Reflux (GERD) N Cancer N Varicosities N Stroke N Neurologic/Epilepsy N Fibromyalgia N Headaches N Kidney Disease N Heart Problems N Kidney or Bladder Problems N Eating Disorder N Art (IVF or FET) N Hepatitis/Liver Disease N No Past Medical History Y Urinary Tract Infection N Asthma N Trauma/Violence N Thrombophilias N Allergies (Food, seasonal, environmental ) N Breast Cancer N Drug/Latex Allergies/Reactions N Lung Disease N Defects or Inherited Disease N Breast Problem N Hematologic disorders N Anesthesia Complications N History of STI N Deep Vein Thrombosis N Polycystic ovary syndrome N History of abnormal pap N Endometriosis N High Cholesterol N Thyroid Problems N GI Problems N Anemia N Psychiatric Illness N Ovarian Cancer N Diabetes N Pulmonary (TB, Asthma) N Eczema N Abuse/Domestic Violence N Depression/ depression N Heart Disease N Pre-Eclampsia N Hypertension N Osteoporosis N Gynecological History Statement/Question Response Date of Last Mammogram Date of LMP 12/10/2021 On BCP's at Conception? N N Was last menstrual period normal N STIs/STDs N HPV Vaccine Y Duration of Flow (days) 4 Current Control Method Implant Age at First Child 19 Date of control 11/30/2021 Most Recent Bone Density Sexually Active? Y Age of first menstrual cycle 13 Date of Last Pap Smear Sexual Problems? N Desired Control Method Implant LMP Unknown N Obstetrics History GPAL:G 2 P 2 0 0 2 Type Value Full Term 2 Living 2 Total 2 Past Encounters Encounter ID Performer Location Encounter Start Date Encounter Closed Date Diagnosis/Indication Diagnosis SNOMED-CT Code Diagnosis ICD10 Code Diagnosis Note [id number] Marisol Avalos [facility] [address],[place] [address] 06/02/2021 11:29:43 06/02/2021 12:55:26 Amenorrhea 67335056 N91.2 [id number] Israel Betts MD [place] [address],[place] [address] 06/02/2021 11:30:24 06/02/2021 12:06:15 Uncertain viability of 858049762 O36.80X9 Z3A.18 [id number] Israel Betts MD [place] [address],[place] [address] 06/15/2021 11:19:27 06/15/2021 12:53:30 screening for malformation 214344332 Z36.3 [id number] Israel Betts MD [place] [address],[place] [address] 06/15/2021 11:23:06 06/15/2021 13:38:52 Routine care 917118331 Z34.92 screening 2437 40452 Z36.89 [id number] Nickie Barreto MD [place] [address],[place] [address] 07/13/2021 14:58:48 07/16/2021 14:11:58 Routine care 292470689 Z34.82 [id number] MD Gabby Rodriguez [address],[place] [address] 08/13/2021 10:05:20 08/13/2021 10:47:40 Routine care 395581104 Z34.92 [id number] MD Gabby Rodriguez [address],[place] [address] 08/26/2021 14:04:30 08/26/2021 14:28:06 Routine care 500752911 Z34.92 [id number] Israel Betts MD [place] [address],[place] [address] 09/10/2021 13:50:33 09/10/2021 14:57:09 Routine care 974976370 Z34.92 [id number] MD Gabby Casanova [address],[place] [address] 09/22/2021 10:44:36 09/22/2021 11:18:08 Routine care 309544417 Z34.82 [id number] Nickie Barreto MD [place] [address],[place] [address] 10/06/2021 11:10:36 10/06/2021 11:34:25 Routine care 539987188 Z34.82 [id number] MD Gabby Rodriguez [address],[place] [address] 10/15/2021 16:40:25 10/15/2021 17:23:14 Routine care 104060136 Z34.92 [id number] MD Gabby Rodriguez [address],[place] [address] 10/22/2021 11:08:15 10/25/2021 14:26:19 Routine care 120282399 Z34.92 [id number] MD Gabby Casanova [address],[place] [address] 11/22/2021 15:18:35 11/22/2021 17:46:52 Contraception care management 247775795 Z30.9 care [id number] 8 Z39.2 [id number] LIAM Roman [place] [address] [address] 11/30/2021 12:17:08 11/30/2021 13:14:31 Insertion of subcutaneous contraceptive done [id number] 01102 Z30.46 Patient 5 weeks , has not had any intercours e since deliveryPa tient denies any medical issues or medical hxUrine hcg (-)Discuss ed all control options in depth and pt is interested in Nexplanon. Discussed all risks and benefits including irregular unschedule d bleeding. Pt verbalized understand ing and would like to proceed. She is aware that she needs to call us on the 1st day of her period to schedule placement. 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 Plan of Treatment Reminders Order Date Submit Date Provider Last Modified By Organization Details Last Modified Time Details Appointments None recorded. Lab rapid strep group A, throat 2016 017 [facility], [address], [place], [address], 7 15:45:56 rapid flu (A+B) 2016 017 [facility], [address], [place], [address], 7 15:45:56 hemoglobin (Hb), fingerstic k, blood 2015 016 DBA_PATCH_ [id number] [facility], [address], [place], [address], 6 04:06:07 urinalysis , dipstick 2015 016 DBA_PATCH_ [id number] [facility], [address], [place], [address], 6 04:06:07 rapid strep group A, throat 2015 016 DBA_PATCH_ [id number] [facility], [address], [place], [address], 6 04:05:43 mononucleo sis, heterophil e Ab, blood 2015 016 DBA_PATCH_ [id number] [facility], [address], [place], [place], [address], 6 04:05:43 culture, throat 2015 016 DBA_PATCH_ [id number] [facility], [address], [place], [address], 6 04:05:47 rapid strep group A, throat 2015 016 DBA_PATCH_ [id number] [facility], [address], [place], [address], 6 04:05:46 Referral None recorded. Procedures None recorded. Surgeries None recorded. Imaging None recorded. Medication Orders Medrol (Akira) 4 mg tablets in a dose pack 2017 018 [facility], [address] [place], [address], 8 17:04:00 triamcinol one acetonide 0.1 % topical ointment 2017 018 [facility], [address] [place], [address], 8 17:04:00 Patient TargetsNo targets recorded. Patient Instructions Encounter Date Encounter Id Patient Instructions Last Modified By Organization Details Last Modified Time 12/29/2015 [id number] anticipatory guidance 14-15 years [id number] [id number] Not available 04/30/2016 04:06:07 pediatric sympto m checklist* [email or web address] [id number] Not available 04/30/2016 04:06:07 pediatric sympto m checklist, youth report* [email or web address] [id number] Not available 04/30/2016 04:06:07 07/12/2017 [id number] dermatitis in children: care instructions [facility] Not available 07/12/2017 17:03:57 Reason for Referral None Reported. Results Created Date Observation Date Name Description Value Unit Range Abnormal Flag Note LastModifiedBy Organization Detail LastModifiedTime 06/24/19 17 06/24/2016 rapid flu (A+B) Result positi ve Not Available [facility] [address] [place] [address] Dr Rodriguez, [place], [address], 06/24/2016 15:19:34 06/24/19 17 06/24/2016 rapid strep group A, throa t Result negati ve Not Available [facility] [address] [place] [address] Dr Rodriguez, [place], [address], 06/24/2016 15:19:29 12/29/19 16 12/29/2015 pedia tric sympt om check list, youth repor t* SCORE: 1 Not Available [facility] [address] [place] [address] Dr Rodriguez, [place], [address], 12/29/2015 17:29:44 12/29/19 16 12/29/2015 pedia tric sympt om check list* SCORE: 1 Not Available [facility] [address] [place] [address] Dr Rodriguez, [place], [address], 12/29/2015 17:29:44 12/29/19 16 12/29/2015 urina lysis , dipst ick Specific [place] 1.025 Not Available [facility] [address] [place] [address] Dr Rodriguez, [place], [address], 12/29/2015 17:29:43 12/29/19 16 12/29/2015 urina lysis , dipst ick pH 7.0 Not Available [facility] [address] [place] [address] Dr Rodriguez, [place], [address], 12/29/2015 17:29:43 12/29/19 16 12/29/2015 urina lysis , dipst ick Leukocytes Trace Not Available [facility] [address] [place] [address] [place], [address], 12/29/2015 17:29:43 12/29/19 16 12/29/2015 urina lysis , dipst ick Protein Trace Not Available [facility] [address] [place] [address] Dr Rodriguez, [place], [address], 12/29/2015 17:29:43 12/29/19 16 12/29/2015 hemog lobin (Hb), finge rstic k, blood HGB 12.5 Not Available [facility] [address] [place] [address] Dr Rodriguez, [place], [address], 12/29/2015 17:29:43 09/17/19 16 09/17/2015 monon ucleo sis, heter ophil e Ab, blood MONONUCLEOSI S, RAPID negati ve Not Available [facility] [address] [place] [address] Dr Rodriguez, [place], [address], 09/17/2015 12:20:36 09/17/19 16 09/17/2015 rapid strep group A, throa t Result negati ve Not Available [facility] [address] [place] [address] [place], [address], 09/17/2015 11:58:23 09/07/19 16 09/07/2015 rapid strep group A, throa t Result negati ve Not Available [facility] [address] [place] [address] Dr Rodriguez, [place], [address], 09/07/2015 14:30:06 09/17/19 16 09/19/2015 cultu re, throa t culture, throat SEE NOTE abnormal CULTU RE, THROA T MICRO NUMBE R: [id number] TEST STATU S: FINAL SPECI MEN SOURC E: THROA T SPECI MEN QUALI TY: ADEQU ATE RESUL T: Light growt h of Group A Strep tococ cus Beta- hemol ytic Strep tococ ci are predi ctabl y susce ptibl e to penic illin and other beta- lacta ms. Day ptibi lity testi ng not routi meera perfo rmed. COMME NT: Francoise l oroph aryng eal scott also prese nt. Not Available [place] [place], [address], 09/19/2015 11:41:07 Result Notes None recorded. Problems Name Problem SNOMED Code Status Onset Date Resolution Date Notes Provider Name and Address Organization Details Recorded Time Viral infection by site Completed 07/12/2017 Mynor Laboy [facility], [place] [facility], 8 17:34:35 Colitis, enteritis and gastroente ritis presumed infectious 872702987 Completed 07/12/2017 Mynor Laboy [facility], [place] [facility], 8 17:34:30 Acute upper respirator y infection 82402545 Completed 07/12/2017 Mynor Laboy null, [place] [facility], 8 17:34:50 Cough 42892645 Completed 07/12/2017 Myn[place]oy [place] [facility], 8 17:34:47 Nausea and vomiting 43869303 Completed 07/12/2017 Mynor Laboy [place] [facility], 8 17:34:21 Right lower quadrant pain 876320863 Completed 07/12/2017 Mynor Laboy [place] [facility], 8 17:34:32 Epigastric pain 37982795 Completed 07/12/2017 Stefanee Keth [place] [facility], 8 17:34:57 Infective otitis externa 64637427 Completed 200907/12/2017 Stedevin Morganh [place] [facility], 8 17:35:01 Otalgia 70552313 Completed 07/12/2017 Mynor Morganh [place] [facility], 8 17:34:16 Food anaphylaxi s 56959110 Active Not Available [facility] 3 03:02:25 Sprain of wrist 87913896 Com[facility]12/2017 [facility] [facility], 8 17:34:54 Paronychia of toe 177262828 Completed 07/12/2017 Mynor [place]h [place] [facility], 8 17:34:39 Sinusitis 04494807 Completed 07/12/2017 Mynor [place]h [place] [facility], 8 17:34:37 Sinus headache 9867877 Completed 07/12/2017 [facility] [facility], 8 17:34:44 Generalize d headache 710056165 Completed 07/12/2017 Stedevin Morganh [place] [facility], 8 17:34:19 Fatigue 35720634 Completed 07/12/2017 [facility] [facility], 8 17:34:59 Abdominal pain 06782581 Completed 07/12/2017 Steoliviaee Cathyh [place] [facility], 8 17:34:23 Acute allergic reaction 301792107 Completed 07/12/2017 Stefanee Keth [place] [facility], 8 17:34:26 Headache 69562317 Completed 07/12/2017 Stefanee Keth [place] [facility], 8 17:34:28 Migraine 15374709 Active Naz Dey MD [address] [place] [address] [address], [address] , [place] [facility], 5 22:53:02 Acute gastroente ritis 51864557 Completed 07/12/2017 [facility], 8 17:34:52 Menstrual migraine 73219525 Active BROOKE NAIR 4 [facility] [address], [address] , [facility], 5 22:02:56 Tension-ty pe headache 723554615 Completed 07/12/2017 Mynor mendes, [facility], 8 17:34:42 Unplanned 43755783 Active 2017 Naz Dey MD [address] [place] [address] [place] [address], [address] , [facility], 8 14:28:52 Problem Notes None recorded. Medical Equipment None Reported. Allergies No known drug allergies Medications Name Sig Start Date Stop Date Status Note LastModified by Organization Details LastModified Time clindamycin HCl 300 mg capsule Take 1 capsule 3 times a day by oral route for 7 days. 04/05 completed Not Available Not Available Not Available cetirizine 10 mg tablet Take 1 tablet every day by oral route. 07/12 completed Not Available Not Available Not Available azithromyci n 250 mg tablet Take two tablets on day 1, then take 1 tablet on days 2-5. active Not Available Not Available No t Available ondansetron HCl 4 mg tablet Take 1 tablet every 8 hours by oral route as needed for 30 days. 12/28 completed Not Available Not Available Not Available Medrol (Akira) 4 mg tablets in a dose pack take as directed 2017 active Not Available Not Available Not Avai lable prednisone 20 mg tablet active Not Available Not Available Not Available rizatriptan 10 mg tablet Take 1 tablet every day by oral route at onset of headache. 07/12 completed Not Available Not Available Not Available Meagan 60 mg tablet Take 1 tablet every day by oral route. active Not Available Not Available No t Available topiramate 25 mg tablet 09/03 completed Not Available Not Available Not Available amitriptyli ne 50 mg tablet Take 1 tablet every day by oral route for 30 days. 07/12 completed Not Available Not Available Not Available butalbital- acetaminoph en-caffeine 50 mg-325 mg-40 mg tablet 07/12 completed Not Available Not Available Not Available ofloxacin 0.3 % ear drops active Not Available Not Available Not Available amoxicillin 875 mg tablet Take 1 tablet twice a day by oral route for 10 days. 12/28 completed Not Available Not Available Not Available amitriptyli ne 25 mg tablet Take 1 tablet every day by oral route for 30 days. 09/03 completed Not Available Not Available Not Available amitriptyli ne 10 mg tablet TAKE ONE TABLET BY MOUTH ONCE DAILY AT BEDTIME active Not Available Not Available No t Available triamcinolo ne acetonide 0.1 % topical ointment APPLY A THIN LAYER TO THE AFFECTED AREA(S) BY TOPICAL ROUTE 2 TIMES PER DAY 2017 active Not Available Not Available Not Avai lable ondansetron 4 mg disintegrat ing tablet Take 1 tablet every 6 hours by oral route as needed for 2 days. 05/05 completed Not Available Not Available Not Available amoxicillin 875 mg-potassiu m clavulanate 125 mg tablet Take 1 tablet twice a day by oral route for 14 days. 04/08 completed Not Available Not Available Not Available amoxicillin 500 mg-potassiu m clavulanate 125 mg tablet active Not Available Not Available Not Available rizatriptan 5 mg tablet 07/12 completed Not Available Not Available Not Available Bactrim DS 800 mg-160 mg tablet Take 1 tablet twice a day by oral route for 10 days. 05/02 completed Not Available Not Available Not Available Sprintec (28) 0.25 mg-0.035 mg tablet Take 1 tablet every day by oral route for 28 days. 12/28 completed Not Available Not Available Not Available topiramate 50 mg tablet 07/12 completed Not Available Not Available Not Available Zyrtec active Not Available Not Availa ble Not Available Salvax 6 % topical foam active Not Available Not Available Not Available Dymista 137 mcg-50 mcg/spray nasal spray Take 1 spray twice a day by nasal route. 09/16 completed Not Available Not Available Not Available EpiPen 2-Akira 0.3 mg/0.3 mL injection, auto-inject or Inject and call 911 for severe reaction: facial swelling, mouth itching, trouble breathing or vomiting. active Not Available Not Available No t Available Vitals Date Recorded Body height Body weight Body mass index (BMI) Body temperature Heart rate Respiratory rate Systolic blood pressure Diastolic blood pressure Provider Name and Address Organization Details Last Updated DateTime 6 168.91 cm 08746.5 6 g 25.9 kg/m2 97.9 [degF] 66 /min 20 /min 112 mm[Hg] 74 mm[Hg] Aura Pinedo [facility], 6 14:27:13 Date Recorded Body height Body weight Body mass index (BMI) Body temperature Heart rate Respiratory rate Systolic blood pressure Diastolic blood pressure Provider Name and Address Organization Details Last Updated DateTime 6 168.91 cm 54307.1 5 g 26.1 kg/m2 97.3 [degF] 60 /min 24 /min 100 mm[Hg] 60 mm[Hg] Dayanara Menendez [facility], 6 11:54:38 Date Recorded Heart rate Respiratory rate Body height Body weight Body mass index (BMI) Systolic blood pressure Diastolic blood pressure Provider Name and Address Organization Details Last Updated DateTime 6 70 /min 20 /min 168.91 cm 87077.3 7 g 25.6 kg/m2 102 mm[Hg] 74 mm[Hg] Brit Patten [facility], 6 17:30:27 Date Recorded Body temperature Heart rate Respiratory rate Body weight Systolic blood pressure Diastolic blood pressure Provider Name and Address Organization Details Last Updated DateTime 7 98.9 [degF] 116 /min 16 /min 54103.0 7 g 110 mm[Hg] 72 mm[Hg] ALVIN Cannon 4 [facility] [address], [place], [address] [facility], 7 15:17:46 Date Recorded Body temperature Heart rate Respiratory rate Body weight Provider Name and Address Organization Details Last Updated DateTime 07/12/2017 98.8 [degF] 128 /min 24 /min 55045.33 g Lilia Whittington [facility], 07/12/2017 16:09:15 Social History Question Answer Notes LastModified by Organizat ion Details LastModified Time Tobacco Smoking Status Never Smoker Not Available [facility] 03/10/2020 03:10:52 Animal Exposure? Yes Informat ion not available 10/31/2012 Are There Any Guns Present In Your Home? Yes Locked [id number] Information not available 03/10/2020 What Is Your Home Situation? Mother [id number] Information not available 03/10/2020 Do You Use Insect Repellent Routinely? Yes [id number] Information not available 03/10/2020 What Is The Name Of Your School? [employer] [id number] Information not available 03/10/2020 Do You Use Your Seat Belt Or Car Seat Routinely? Yes [id number] Information not available 03/10/2020 Do You Have Any Siblings? 1 [id number] Information not available 03/10/2020 Do You Have Smoke And Carbon Monoxide Detectors In Your Home? Yes [id number] Information not available 03/10/2020 Are You Passively Exposed To Smoke? Yes Information not available 10/31/2012 What Types Of Sporting Activities Do You Participate In? Horseback Riding [id number] Information not available 03/10/2020 Do You Use Sunscreen Routinely? Yes [id number] Information not available 03/10/2020 Year In School 9 [email or web address] Informatio n not available 12/29/2015 Sex: Unknown Functional Status Question Answer Note LastModified by Organization D etails LastModified Time What is your exercise level? Moderate [id number] Information not available 03/10/2020 Mental Status None recorded. Family History Relationship Description Onset Age of this Age Resolved Age Notes LastModified by Organization Details LastModified Time Father No current problems or disability [email or web address] Not available 12/28 17:31:35 Mother No current problems or disability [email or web address] Not available 12/28 17:31:35 Medical History Condition Response Asthma / Wheezing N Concerns with Hearing or Vision N Other Developmental Delay N Frequent Ear Infections N Murmur / Cardiac N Serious Injuries N History of UTI N ER or UC Visits Y Nasal Allergies N Frequent Headaches N Hospitalizations Y ADD or ADHD N Broken bones N ear or hearing problems N Constipation N Albuterol / Nebulizer N Diabetes N Bedwetting N Skin problems N Allergies Y Sleep Problems / Snoring N Gynecological HistoryNo gynecological history recorded. Obstetrics History GPAL:G 0 P 0 0 0 0 Immunizations Vaccine Type Date Status Note Provider Nam e and Address Organization Details Recorded Time HPV, quadrivalent 3 completed Not Available [facility] 06/01/2019 02:11:57 HPV, quadrivalent 4 completed Not Available [facility] 06/01/2019 02:11:57 Hep A, adult 4 completed Not Available [facility] 06/01/2019 02:12:06 Meningococcal MCV4O 4 completed Not Available [facility] 06/01/2019 02:12:16 Influenza, live, quadrivalent, intranasal 4 completed Not Available [facility] 06/01/2019 02:12:25 Hep A, ped/adol, 2 dose 6 completed Not Available [facility] 06/01/2019 02:12:44 IPV 3 completed Not Available [facility] 03/30/2011 06:13:51 Hib, unspecified formulation 2 completed Not Available [facility] 03/30/2011 06:13:51 DTaP, unspecified formulation 2 completed Not Available [facility] 03/30/2011 06:13:51 varicella 2 completed Not Available [facility] 03/30/2011 06:13:51 DTaP, unspecified formulation 2 completed Not Available [facility] 03/30/2011 06:13:51 DTaP, unspecified formulation 1 completed Not Available [facility] 03/30/2011 06:13:51 pneumococcal conjugate PCV 7 2 completed Not Available [facility] 03/30/2011 06:13:51 MMR 3 completed Not Available [facility] 03/30/2011 06:13:51 Hib, unspecified formulation 2 completed Not Available [facility] 03/30/2011 06:13:51 DTaP, unspecified formulation 3 completed Not Available [facility] 03/30/2011 06:13:51 IPV 1 completed Not Available [facility] 03/30/2011 06:13:51 IPV 7 completed Not Available [facility] 03/30/2011 06:13:51 pneumococcal conjugate PCV 7 1 completed Not Available [facility] 03/30/2011 06:13:51 Hib, unspecified formulation 3 completed Not Available [facility] 03/30/2011 06:13:51 DTaP, unspecified formulation 7 completed Not Available [facility] 03/30/2011 06:13:51 MMRV 7 completed Not Available [facility] 03/30/2011 06:13:51 IPV 2 completed Not Available [facility] 03/30/2011 06:13:51 Hib, unspecified formulation 1 completed Not Available [facility] 03/30/2011 06:13:51 Tdap 3 completed Not Available [facility] 06/01/2019 02:11:51 HPV, quadrivalent 3 completed Not Available [facility] 06/01/2019 02:11:57 Past Encounters Encounter ID Performer Location Encounter Start Date Encounter Closed Date Diagnosis/Indication Diagnosis SNOMED-CT Code Diagnosis ICD10 Code Diagnosis Note [id number] [facility] [address] [place] [address],[address] [place] [address] 11/17/2009 17:49:49 11/17/2009 17:56:44 [id number] [facility] De[facility] [address] [place] [address],[address] [place] [address] 12/25/2009 16:48:05 12/25/2009 17:08:00 [id number] [facility] [address] [place] [address],[address] [place] [address] 06/28/2010 10:10:52 06/29/2010 11:02:25 [id number] [facility] [address] [place] [address],[address] [place] [address] 07/07/2010 12:18:44 07/08/2010 12:51:46 [id number] Naz De[facility] MD [facility],[address] [place] [address] 09/29/2010 09:12:07 10/01/2010 15:04:56 [id number] Naz De[facility],[address] [place] [address] 02/16/2011 08:59:57 02/17/2011 12:04:28 [id number] Naz De[facility],[address] [place] [address] 04/13/2011 12:49:13 04/14/2011 16:24:02 [id number] Daphnie Donahue MD [facility],[address] [place] [address] 06/17/2011 13:47:49 06/20/2011 10:44:05 [id number] Naz De[facility] [address] [place] [address],[address] [place] [address] 08/08/2011 14:33:36 08/09/2011 16:06:47 [id number] [facility] De[facility] [address] [place] [address],[address] [place] [address] 01/05/2012 12:18:54 01/09/2012 14:16:00 [id number] Naz De[facility] [address] [place] [address],[address] [place] [address] 09/03/2012 15:47:54 09/04/2012 14:23:52 [id number] Naz De[facility],[address] [place] [address] 10/31/2012 11:29:58 11/02/2012 09:36:58 [id number] Naz Dey MD [facility],[address] [place] [address] 12/27/2012 14:06:17 12/31/2012 12:21:09 [id number] Naz De[facility] [address] [place] [address],[address] [place] [address] 02/04/2013 11:08:44 02/07/2013 12:30:00 [id number] Naz Dey MD [facility] E [address] [place] [address],[address] [place] [address] 03/25/2013 14:21:42 03/28/2013 11:53:22 [id number] Naz Dey MD [facility] E [address] [place] [address],[address] [place] [address] 04/22/2013 12:14:42 04/23/2013 13:07:43 Sinusitis 09638635 Sinus headache 2154082 Methicilli n resistant Staphylococcus aureus infection 191713439 [id number] Naz Dey MD [facility] E [address] [place] [address],[address] [place] [address] 05/03/2013 12:04:30 05/04/2013 11:25:12 Sinusitis 98697281 [id number] Naz Dey MD [facility] E [address] [place] [address],[address] [place] [address] 07/02/2013 17:05:51 07/04/2013 12:06:12 Well child [id number] [id number] Naz Dey MD [facility] E [address] [place] [address],[address] [place] [address] 07/09/2013 12:00:15 07/11/2013 10:16:04 Generalized headache 599857225 Fatigue 98295829 [id number] BROOKE NAIR [facility] E [address] [place] [address],[address] [place] [address] 08/01/2013 12:14:25 08/02/2013 12:19:29 Abdominal pain 49467486 [id number] Naz Dey MD [facility] E [address] [place] [address],[address] [place] [address] 01/14/2014 11:26:02 01/16/2014 11:47:56 Well child 118391617 Acute beto rgic reaction 281038839 [id number] Naz Dey MD [address] [place] [address] 03/03/2014 14:30:58 03/04/2014 13:30:12 Abdominal pain 94632638 [id number] Naz Dey MD [address] [place] [address] 06/16/2014 12:20:57 06/17/2014 12:31:58 Headache 59617058 [id number] Daphnie Donahue MD [address] [place] [address] 09/04/2014 12:40:03 09/05/2014 09:21:47 Migraine 72759830 [id number] Daphnie Donahue MD [address] [place], [place] [address] 02/24/2015 11:13:03 03/03/2015 12:05:09 Acute gastroenteritis [id number] K52.9 [id number] Daphnie Donahue MD [address] [place] [address] 03/19/2015 14:12:33 03/20/2015 11:59:20 Menstrual migraine [id number] G43.821 [id number] Naz Dey MD [address] [place] [address] 04/01/2015 16:39:46 04/02/2015 14:57:12 Headache [id number] R51 Migraine [id number] G43.90 9 Tension-type headache 39 [id number] G44.209 [id number] Naz Dey MD [address] [place] [address] 09/04/2015 15:42:28 09/10/2015 12:20:16 Allergic rhinitis [id number] J30.9 Allergic Rhinitis: Avoid known allergens. Wash hands often. Take Medication as written.. May have honey based cough syrup. Patanase each nare BID. Follow up if symptoms worsen or change. [id number] Naz Dey MD [address] [place] [address] 09/07/2015 14:23:46 09/08/2015 11:36:38 Viral syndrome [id number] B34.9 Viral syndrome. Physical exam is negative for abnormal findings of ENT and respirator y systems. No indication for antibiotic therapy. RTC prn. Call if no better in 72 hours. [id number] Daphnie Donahue MD PEDIATRIC [address] [address] 09/17/2015 11:45:39 09/18/2015 12:12:42 Pharyngitis [id number] J02.9 pharyngiti s- RS negative, but will send throat culture for confirmati on. Supportive care, encourage fluids, ibuprofen or tylenol for pain/fever . RTC if no improvemen t, concerns for dehydratio n or fever persisting more than 3 days.
--- OUTSIDE RECORDS SUMMARY | 2024-09-28 20:03 | XMS_ITS | Clinical Summary ---
Author Organization [facility] Care Team Providers Care Insurance Claims Assistant Name Role Phone Unavailable Primary Care Provider Unavailabl e Social History Tobacco Use Types Packs/Day Years Used Date Smoking Tobacco: Never Assessed Comments Unknown Sex and Gender Information Value Date Recorded Sex Assigned at Not on file Legal Sex Female 9:18 PM CDT Gender Identity Not on file Sexual Orientation Not on file Plan of Treatment Health Maintenance Due Date Last Done Comments Hepatitis C Virus (HCV) Screening 2001 Meningococcal B Immunization (1 of 2 - Standard) 2017 Hepatitis B Immunization (1 of 3 - 19+ 3-dose series) 02/26/2020 Pap Smear 2022 Influenza Immunization (#1) 2024 01/14/2014 SARS-COV-2 Immunization ( season) 2024 Respiratory Syncytial Virus (RSV) Immunization (Adult) (1 - 1-dose 75+ series) 02/26/2076 Pneumococcal Immunization Combined Aged Out 2001, 2001 No longer eligibl e based on patient's age to complete this topic Human Papillomavirus (HPV) Immunization Completed 07/02/2013, 12/28/2012, 10/31/2012 Meningococcal Immunization (ACWY) Aged Out 01/14/2014 No longer eligible based on patient's age to complete this topic DTaP/Tdap/Td Immunization Discontinued 2018, 10/31/2012, 11/28/2006, Additional history exists TdaP Immunization Completed 08/13/2018, 10/31/2012 Rotavirus Immunization Aged Out No lo nger eligible based on patient's age to complete this topic
--- OUTSIDE RECORDS SUMMARY | 2024-09-28 20:03 | XMS_ITS | Encounter Summary ---
Author Organization [facility] Address [address] [facility] Attn: Epic Prelude ADT [facility] [place] [address] Care Team Providers Care Bee Worker Name Role Phone Naz Dey MD Primary Care Provider [phone] Encounter Details Date Type Department Care Team (Late st Contact Info) Description 2001 Inpatient Historical Marisol Brock MD [address] [place] [id number] Single liveborn, born in hospital, delivered without mention of delivery (Primary Dx) Social History Tobacco Use Types Packs/Day Years Used Date Smoking Tobacco: Never Assessed Comments Unknown Sex and Gender Information Value Date Recorded Sex Assigned at Not on file 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
--- OUTSIDE RECORDS SUMMARY | 2024-09-28 20:03 | XMS_ITS | Data Portability ---
Author Organization [place] [facility] [place] [facility]- Address # [address] [place] [address] Care Team Providers Care Hand Laster Name Role Phone NAZ DEY Primary Care Provider Assessment No assessment recorded. Plan of Treatment Reminders Order Date Submit Date Provider Last Modified By Organization Details Last Modified Time Details Appointments None recorded. Lab rapid strep group A, throat 2016 017 [facility] [address], [place], [address], 7 15:45:56 [facility] flu (A+B) 2016 017 [facility] [address], [place], [address], 7 15:45:56 hemoglobin (Hb), fingerstic k, blood 2015 016 [facility] [id number] [facility] [address], [place], [address], 6 04:06:07 urinalysis , dipstick 2015 016 DBA[facility]PATCH_ [id number] [facility] [address], [place], [address], 6 04:06:07 rapid strep group A, throat 2015 016 [facility]_ [id number] [facility], [place], [address], 6 04:05:43 mononucleo sis, heterophil e Ab, blood 2015 016 DBA[facility]PATCH_ [id number] [facility], [address], [place], [address], 6 04:05:43 culture, throat 2015 016 DBA_PATCH_ [id number] [facility] [address], [place], [address], 6 04:05:47 rapid strep group A, throat 2015 016 DBA_PATCH_ [id number] [facility] [address], [place], [address], 6 04:05:46 Referral None recorded. Procedures None recorded. Surgeries None recorded. Imaging None recorded. Medication Orders Medrol (Akira) 4 mg tablets in a dose pack 2017 018 INTERFACE [facility] [place], [address], 8 17:04:00 triamcinol one acetonide 0.1 % topical ointment 2017 018 INTERFACE [facility], [address] [place], [address], 8 17:04:00 Patient TargetsNo targets recorded. Patient Instructions Encounter Date Encounter Id Patient Instructions Last Modified By Organization Details Last Modified Time 12/29/2015 [id number] anticipatory guidance 14-15 years [id number] [id number] Not available 04/30/2016 04:06:07 pediatric sympto m checklist* [email or web address] [id number] Not available 04/30/2016 04:06:07 pediatric sympto m checklist, youth report* [id number] [id number] Not available 04/30/2016 04:06:07 07/12/2017 [id number] dermatitis in children: care instructions sketh Not available 07/12/2017 17:03:57 Reason for Referral None Reported. Results Created Date Observation Date Name Description Value Unit Range Abnormal Flag Note LastModifiedBy Organization Detail LastModifiedTime 06/24/19 17 06/24/2016 rapid flu (A+B) Result positi ve Not Available [facility] [address] [place] [address] [place], [address], 06/24/2016 15:19:34 06/24/19 17 06/24/2016 rapid strep group A, throa t Result negati ve Not Available [facility] [address] [place] [address] [place], [address], 06/24/2016 15:19:29 12/29/19 16 12/29/2015 pedia tric sympt om check list, youth repor t* SCORE: 1 Not Available [facility] [address] [place] [address] [place], [address], 12/29/2015 17:29:44 12/29/19 16 12/29/2015 pedia tric sympt om check list* SCORE: 1 Not Available [facility] [address] [place] [address] [place], [address], 12/29/2015 17:29:44 12/29/19 16 12/29/2015 urina lysis , dipst ick Specific Carson 1.025 Not Available [facility] [address] [place] [address] [place], [address], 12/29/2015 17:29:43 12/29/19 16 12/29/2015 urina lysis , dipst ick pH 7.0 Not Available [facility] [address] [place] [address] [place], [address], 12/29/2015 17:29:43 12/29/19 16 12/29/2015 urina lysis , dipst ick Leukocytes Trace Not Available [facility] [address] [place] [address] [place], [address], 12/29/2015 17:29:43 12/29/19 16 12/29/2015 urina lysis , dipst ick Protein Trace Not Available [facility] [address] [place] [address] [place], [address], 12/29/2015 17:29:43 12/29/19 16 12/29/2015 hemog lobin (Hb), finge rstic k, blood HGB 12.5 Not Available [facility] [address] [place] [address] [address], [place], [address], 12/29/2015 17:29:43 09/17/19 16 09/17/2015 monon ucleo sis, heter ophil e Ab, blood MONONUCLEOSI S, RAPID negati ve Not Available [facility] [address] [place] [address] [address], [place], [address], 09/17/2015 12:20:36 09/17/19 16 09/17/2015 rapid strep group A, throa t Result negati ve Not Available [facility] [address] [place] [address] [address], [place], [address], 09/17/2015 11:58:23 09/07/19 16 09/07/2015 rapid strep group A, throa t Result negati ve Not Available [facility] [address] [place] [address] [address], [place], [address], 09/07/2015 14:30:06 09/17/19 16 09/19/2015 cultu re, throa t culture, throat SEE NOTE abnormal CULTU RE, THROA T MICRO NUMBE R: [id number] TEST STATU S: FINAL SPECI MEN SOURC E: THROA T SPECI MEN QUALI TY: ADEQU ATE RESUL T: Light growt h of Group A Strep tococ cus Beta- hemol ytic Strep tococ ci are predi ctabl y susce ptibl e to penic illin and other beta- lacta ms. Susce ptibi lity testi ng not routi meera perfo rmed. COMME NT: Francoise l oroph aryng eal scott also prese nt. Not Available [employer] [facility] [address] [place], [address], 09/19/2015 11:41:07 Result Notes None recorded. Problems Name Problem SNOMED Code Status Onset Date Resolution Date Notes Provider Name and Address Organization Details Recorded Time Viral infection by site Completed 07/12/2017 Mynor Laboy null, [place] [facility], 8 17:34:35 Colitis, enteritis and gastroente ritis presumed infectious 126015763 Completed 07/12/2017 Myn[place] [facility], 8 17:34:30 Acute upper respirator y infection 40869569 Completed 07/12/2017 [place]yn[place] [facility], 8 17:34:50 Cough 48524893 Completed 07/12/2017 Myn[place] [facility], 8 17:34:47 Nausea and vomiting 93575450 Completed 07/12/2017 Myn[place] [facility], 8 17:34:21 Right lower quadrant pain 990253091 Completed 07/12/2017 Myn[place] [facility], 8 17:34:32 Epigastric pain 29818150 Completed 07/12/2017 Mynor [place] [facility], 8 17:34:57 Infective otitis externa 15902728 Completed 200907/12/2017 [place] [facility], 8 17:35:01 Otalgia 87328742 Completed 07/12/2017 [facility] [place] [facility], 8 17:34:16 Food anaphylaxi s 47957299 Active Not Available [facility] 3 03:02:25 Sprain of wrist 10023361 Completed 07/12/2017 [place] [facility], 8 17:34:54 Paronychia of toe 691317277 Completed 07/12/2017 [place]yn[place] [facility], 8 17:34:39 Sinusitis 29581275 Completed 07/12/2017 Myn[place] [facility], 8 17:34:37 Sinus headache 3026618 Completed 07/12/2017 Stefanee [place] [facility], 8 17:34:44 Generalize d headache 682318699 Completed 07/12/2017 Stefane[place] [facility], 8 17:34:19 Fatigue 37858470 Completed [facility]12/2017 [facility] [place] [facility], 8 17:34:59 Abdominal pain 79112487 Completed 07/12/2017 [facility] [place] [facility], 8 17:34:23 Acute allergic reaction 732354646 Completed 07/12/2017 [facility] [place] [facility], 8 17:34:26 Headache 20949209 Completed 07/12/2017 [facility] [place] [facility], 8 17:34:28 Migraine 87646176 Active Naz Dey MD [address] [place] [address] [place] [address], [address] , [facility], 5 22:53:02 Acute gastroente ritis 08294798 Completed 07/12/2017 [facility] [place] [facility], 8 17:34:52 Menstrual migraine 98151510 Active BROOKE NAIR [address] [place] [address] [place] [address], [address] , [facility], 5 22:02:56 Tension-ty pe headache 067175520 Completed 07/12/2017 [facility] [place] [facility], 8 17:34:42 Unplanned 86375596 Active 2017 Naz Dey MD [address] [place] [address] [place] [address], [address] , [facility], 8 14:28:52 Problem Notes None recorded. Medical [...] Details Last Updated DateTime 6 168.91 cm 24780.5 6 g 25.9 kg/m2 97.9 [degF] 66 /min 20 /min 112 mm[Hg] 74 mm[Hg] Aura Pinedo [facility], 6 14:27:13 Date Recorded Body height Body weight Body mass index (BMI) Body temperature Heart rate Respiratory rate Systolic blood pressure Diastolic blood pressure Provider Name and Address Organization Details Last Updated DateTime 6 168.91 cm 15112.1 5 g 26.1 kg/m2 97.3 [degF] 60 /min 24 /min 100 mm[Hg] 60 mm[Hg] Dayanara Menendez [facility], 6 11:54:38 Date Recorded Heart rate Respiratory rate Body height Body weight Body mass index (BMI) Systolic blood pressure Diastolic blood pressure Provider Name and Address Organization Details Last Updated DateTime 6 70 /min 20 /min 168.91 cm 45233.3 7 g 25.6 kg/m2 102 mm[Hg] 74 mm[Hg] Brit Sandor [facility], 6 17:30:27 Date Recorded Body temperature Heart rate Respiratory rate Body weight Systolic blood pressure Diastolic blood pressure Provider Name and Address Organization Details Last Updated DateTime 7 98.9 [degF] 116 /min 16 /min 21014.0 7 g 110 mm[Hg] 72 mm[Hg] ALVIN Cannon [address] [facility] [address], [place], [address], [facility], 7 15:17:46 Date Recorded Body temperature Heart rate Respiratory rate Body weight Provider Name and Address Organization Details Last Updated DateTime 07/12/2017 98.8 [degF] 128 /min 24 /min 61030.33 g Lilia Whittington [facility], 07/12/2017 16:09:15 Social History Question Answer Notes LastModified by Organizat ion Details LastModified Time Tobacco Smoking Status Never Smoker Not Available [facility] 03/10/2020 03:10:52 Animal Exposure? Yes Informat ion not available 10/31/2012 Are There Any Guns Present In Your Home? Yes [facility] [id number] Information not available 03/10/2020 What Is Your Home Situation? Mother [id number] Information not available 03/10/2020 Do You Use Insect Repellent Routinely? Yes [id number] Information not available 03/10/2020 What Is The Name Of Your School? [employer] [id number] Information not available 03/10/2020 Do You Use Your Seat Belt Or Car Seat Routinely? Yes [id number] Information not available 03/10/2020 Do You Have Any Siblings? 1 [id number] Information not available 03/10/2020 Do You Have Smoke And Carbon Monoxide Detectors In Your Home? Yes [id number] Information not available 03/10/2020 Are You Passively Exposed To Smoke? Yes Information not available 10/31/2012 What Types Of Sporting Activities Do You Participate In? Horseback Riding [id number] Information not available 03/10/2020 Do You Use Sunscreen Routinely? Yes [id number] Information not available 03/10/2020 Year In School 9 [email or web address] Informatio n not available 12/29/2015 Sex: Unknown Functional Status Question Answer Note LastModified by Organization D etails LastModified Time What is your exercise level? Moderate [id number] Information not available 03/10/2020 Mental Status None recorded. Family History Relationship Description Onset Age of this Age Resolved Age Notes LastModified by Organization Details LastModified Time Father No current problems or disability [email or web address] Not available 12/28 17:31:35 Mother No current problems or disability [email or web address] Not available 12/28 17:31:35 Medical History Condition Response Asthma / Wheezing N Concerns with Hearing or Vision N Other Developmental Delay N Frequent Ear Infections N Murmur / Cardiac N Serious Injuries N History of UTI N ER or UC Visits Y Nasal Allergies N Hospitalizations Y Frequent Headaches N ADD or ADHD N Broken bones N [...] Time HPV, quadrivalent 3 completed Not Available [facility] 06/01/2019 02:11:57 HPV, quadrivalent 4 completed Not Available [facility] 06/01/2019 02:11:57 Hep A, adult 4 completed Not Available [facility] 06/01/2019 02:12:06 Meningococcal MCV4O 4 completed Not Available [facility] 06/01/2019 02:12:16 Influenza, live, quadrivalent, intranasal 4 completed Not Available [facility] 06/01/2019 02:12:25 Hep A, ped/adol, 2 dose 6 completed Not Available [facility] 06/01/2019 02:12:44 IPV 3 completed Not Available [facility] 03/30/2011 06:13:51 Hib, unspecified formulation 2 completed Not Available [facility] 03/30/2011 06:13:51 DTaP, unspecified formulation 2 completed Not Available [facility] 03/30/2011 06:13:51 varicella 2 completed Not Available [facility] 03/30/2011 06:13:51 DTaP, unspecified formulation 2 completed Not Available [facility] 03/30/2011 06:13:51 DTaP, unspecified formulation 1 completed Not Available [facility] 03/30/2011 06:13:51 pneumococcal conjugate PCV 7 2 completed Not Available [facility] 03/30/2011 06:13:51 MMR 3 completed Not Available [facility] 03/30/2011 06:13:51 Hib, unspecified formulation 2 completed Not Available [facility] 03/30/2011 06:13:51 DTaP, unspecified formulation 3 completed Not Available [facility] 03/30/2011 06:13:51 IPV 1 completed Not Available [facility] 03/30/2011 06:13:51 IPV 7 completed Not Available [facility] 03/30/2011 06:13:51 pneumococcal conjugate PCV 7 1 completed Not Available [facility] 03/30/2011 06:13:51 Hib, unspecified formulation 3 completed Not Available [facility] 03/30/2011 06:13:51 DTaP, unspecified formulation 7 completed Not Available [facility] 03/30/2011 06:13:51 MMRV 7 completed Not Available [facility] 03/30/2011 06:13:51 IPV 2 completed Not Available [facility] 03/30/2011 06:13:51 Hib, unspecified formulation 1 completed Not Available [facility] 03/30/2011 06:13:51 Tdap 3 completed Not Available [facility] 06/01/2019 02:11:51 HPV, quadrivalent 3 completed Not Available [facility] 06/01/2019 02:11:57 Past Encounters Encounter ID Performer Location Encounter Start Date Encounter Closed Date Diagnosis/Indication Diagnosis SNOMED-CT Code Diagnosis ICD10 Code Diagnosis Note [id number] [facility] De[facility] [address] [place] [address] 11/17/2009 17:49:49 11/17/2009 17:56:44 [id number] [facility] [address] [place] [address] [address] [place] [address] 12/25/2009 16:48:05 12/25/2009 17:08:00 [id number] [facility] [address] [place] [address] [address] [place] [address] 06/28/2010 10:10:52 06/29/2010 11:02:25 [id number] [facility] [address] [place] [address],[address] [place] [address] 07/07/2010 12:18:44 07/08/2010 12:51:46 [id number] [facility] De[facility] [address] [place] [address],[address] [place] [address] 09/29/2010 09:12:07 10/01/2010 15:04:56 [id number] [facility] [address] [place] [address],[address] [place] [address] 02/16/2011 08:59:57 02/17/2011 12:04:28 [id number] Naz De[facility] [address] [place] [address],[address] [place] [address] 04/13/2011 12:49:13 04/14/2011 16:24:02 [id number] Daphnie Donahue [facility] [address] [place] [address],[address] [place] [address] 06/17/2011 13:47:49 06/20/2011 10:44:05 [id number] Naz De[facility] [address] [place] [address],[address] [place] [address] 08/08/2011 14:33:36 08/09/2011 16:06:47 [id number] Naz De[facility] [address] [place] [address],[address] [place] [address] 01/05/2012 12:18:54 01/09/2012 14:16:00 [id number] Naz De[facility] [address] [place] [address],[address] [place] [address] 09/03/2012 15:47:54 09/04/2012 14:23:52 [id number] Naz De[facility] [address] [place] [address],[address] [place] [address] 10/31/2012 11:29:58 11/02/2012 09:36:58 [id number] Naz Dey [facility] [address] [place] [address],[address] [place] [address] 12/27/2012 14:06:17 12/31/2012 12:21:09 [id number] Naz Dey [facility] [address] [place] [address],[address] [place] [address] 02/04/2013 11:08:44 02/07/2013 12:30:00 [id number] Naz Dey [facility] [address] [place] [address],[address] [place] [address] 03/25/2013 14:21:42 03/28/2013 11:53:22 [id number] Naz Dey [facility] [address] [place] [address],[address] [place] [address] 04/22/2013 12:14:42 04/23/2013 13:07:43 Sinusitis 41458191 Sinus headache 8925798 Methicilli n resistant Staphylococcus aureus infection 954636383 [id number] Naz Dey [facility] [address] [place] [address],[address] [place] [address] 05/03/2013 12:04:30 05/04/2013 11:25:12 Sinusitis 28399171 [id number] Naz Dey [facility] [address] [place] [address] 07/02/2013 17:05:51 07/04/2013 12:06:12 Well child [id number] Naz Dey MD [facility] E [address] [place] [address],[address] [place] [address] 07/09/2013 12:00:15 07/11/2013 10:16:04 Generalized headache 817418250 [facility] 11244434 [id number] EDENILSON KATZ APRN-A [facility] E [address] [place] [address],[address] [place] [address] 08/01/2013 12:14:25 08/02/2013 12:19:29 Abdominal pain 56274953 [id number] Naz Dey MD [facility] E [address] [place] [address],[address] [place] [address] 01/14/2014 11:26:02 01/16/2014 11:47:56 Well child [id number] Acute beto rgic reaction 982976691 [id number] Naz Dey MD [facility] E [address] [place] [address],[address] [place] [address] 03/03/2014 14:30:58 03/04/2014 13:30:12 Abdominal pain 69328217 [id number] Naz Dey MD [facility] E [address] [place] [address],[address] [place] [address] 06/16/2014 12:20:57 06/17/2014 12:31:58 Headache 69346086 [id number] Daphnie Donahue [facility] [address] [place] [address],[address] [place] [address] 09/04/2014 12:40:03 09/05/2014 09:21:47 Migraine 27735878 [id number] Daphnie Donahue [facility] [address] [place] [address],[address] [place] [address] 02/24/2015 11:13:03 03/03/2015 12:05:09 Acute gastroenteritis 97680638 K52.9 [id number] Daphnie Donahue MD [facility] E [address] [place], [place] [address] [address] 03/19/2015 14:12:33 03/20/2015 11:59:20 Menstrual migraine 01677872 G43.821 [id number] Naz Dey MD [facility] E [address] [place] [address] 04/01/2015 16:39:46 04/02/2015 14:57:12 Headache 22311854 R51 Migraine 96947454 G43.90 9 Tension-type headache 39 7818268 G44.209 [id number] Naz Dey MD [facility] E [address] [place] [address] 09/04/2015 15:42:28 09/10/2015 12:20:16 Allergic rhinitis 81326734 J30.9 Allergic Rhinitis: Avoid known allergens. Wash hands often. Take Medication as written.. May have honey based cough syrup. Patanase each nare BID. Follow up if symptoms worsen or change. [id number] Naz Dey MD [facility] E [address] [place] [address] 09/07/2015 14:23:46 09/08/2015 11:36:38 Viral syndrome 584150541 B34.9 Viral syndrome. Physical exam is negative for abnormal findings of ENT and respirator y systems. No indication for antibiotic therapy. RTC prn. Call if no better in 72 hours. [id number] Daphnie Donahue MD [facility] E [address] [place] [address] 09/17/2015 11:45:39 09/18/2015 12:12:42 Pharyngitis 211857183 J02.9 pharyngiti s- RS negative, but will send throat culture for confirmati on. Supportive care, encourage fluids, ibuprofen or tylenol for pain/fever . RTC if no improvemen t, concerns for dehydratio n or fever persisting more than 3 days. [id number]|2024-09-28 20:03:00|2024-09-28 20:03:00|XMS_ITS|BKG DAEMON|External Medical Summaries|[id number]|" Clinical Summary Created on: September 28, 2024 Sudarshan Kurtzna : 2000 Sex: Female Author Organization [facility] Address [address] [place] [address] Phone Care Team Providers Care Hand Laster Name Role Phone Naz Dey MD Primary Care Provider [phone] Allergies No known active allergies Medications ondansetron (ZOFRAN, HYDROCHLORIDE, ) 4 mg Tablet Take 1 Tablet (4 mg) by mouth every 8 hours as needed for Nausea/Emesis. 20 Tablet 1 5 Active acetaminophen- caffeine-butal bital (FIORICET) 325-40-50 mg tablet Take 1 Tablet by mouth see administration instructions Take one to two tabs at onset of headache, max 4/day. 30 Tablet 1 5 Active topiramate (TOPAMAX) 50 mg tablet Take 1 Tablet (50 mg) by mouth 2 times daily. 60 Tablet 6 6 Active Active Problems Problem Noted Date Diagnosed Date Migraine without aura and wi thout status migrainosus, not intractable 04/28/2015 Chronic headache 04/28/2015 Family History Medical History Relation Name Comments Healthy Father Healthy Mother Migraines Mother Healthy Sister Relation Name Status Comments Father Mother Sister Social History Tobacco Use Types Packs/Day Years Used Date Smoking Tobacco: Never Smokeless Tobacco: Never Alcohol Use Standard Drinks/Week Comments No 0 (1 standard drink = 0.6 oz pur e alcohol) Comments No Sex and Gender Information Value Date Recorded Sex Assigned at Not on file Legal Sex Female 2:54 AM [employer] Gender Identity Not on file Sexual Orientation Not on file Last Filed Vital Signs Vital Sign Reading Time Taken Comments Blood Pressure 110/68 06/19/2015 9:24 AM [employer] Pulse - - Temperature - - Respiratory Rate - - Oxygen Saturation - - Inhaled Oxygen Concentration - - Weight 78 kg (171 lb 15.3 oz) 06/19/2015 9:24 AM [employer] [employer] Height 168 cm (5' 6.14 ) 06/19/2015 9:24 AM [employer] [employer] Body Mass Index 27.64 06/19/2015 9:24 AM [employer] [employer] Plan of Treatment Health Maintenance Due Date Last Done Comments CHLAMYDIA SCREENING (ANNUAL) 11-24 YEARS 02/26/2012 HPV VACCINES (1 - 3-dose series) 02/26/2016 DTAP/TDAP/TD VACCINES (1 - Tdap) 02/26/2020 HEPATITIS B VACCINES (1 of 3 - 19+ 3-dose series) 02/12 CERVICAL CANCER SCREENING 2022 HPV/Cotest (21-29) 2022 PAP SMEAR 2022 INFLUENZA VACCINE (#1) 2023 Insurance Care Teams Hand Laster Relationship Specialty Start Date End Date Naz Dey MD PCP - General Pediatrics 04/15/15 "
[2024-09-28 20:28] VITALS: BP 115/67; PULSE 64; RESP 14; TEMP 37.1; O2SAT 100
--- OUTSIDE RECORDS SUMMARY | 2024-09-28 21:04 | XMS_ITS | Clinical Summary ---
Author Organization [facility] Care Team Providers Care Security Manager Name Role Phone Unavailable Primary Care Provider [...]
--- OUTSIDE RECORDS SUMMARY | 2024-09-28 21:04 | XMS_ITS | Clinical Summary ---
Author Organization [facility] Address [address] [place] [address] Care Team Providers Care Fire Control System Installer Name Role Phone Chela Anguiano MD Primary Care Provider Allergies No known active allergies Medications No known medications Active Problems Problem Noted Date Diagnosed Date Annual physical exam 06/07/2023 Assessment & Plan (06/07/2023 4:19 PM ANALYTICAL DATA MINER): Doing well. BMI: 2401 (Normal) Recommend daily [...] 06/07/2023 Assessment & Plan (06/07/2023 4:18 PM ANALYTICAL DATA MINER): Chronic. Labs ordered Migraine headache 11/10/2014 Assessment & Plan (06/07/2023 4:17 PM ANALYTICAL DATA MINER): Chronic and stable.. MRI 2014 Minimally low [...] on file Legal Sex Female 6:49 AM ANALYTICAL DATA MINER Gender Identity Not on file Sexual Orientation [...] Comments Blood Pressure 94/56 06/07/2023 3:43 PM ANALYTICAL DATA MINER Pulse 67 06/07/2023 3:43 PM ANALYTICAL DATA MINER Temperature 36.4 C (97.5 F) 06/07/2023 3:43 PM ANALYTICAL DATA MINER Respiratory Rate 16 06/07/2023 3:43 PM ANALYTICAL DATA MINER Oxygen Saturation 99% 06/07/2023 3:43 PM ANALYTICAL DATA MINER Inhaled Oxygen Concentration - - Weight 69.9 kg (154 lb) 06/07/2023 3:43 PM ANALYTICAL DATA MINER Height 170.2 cm (5' 7 ) 06/07/2023 3:43 PM ANALYTICAL DATA MINER Body Mass Index 24.12 06/07/2023 3:43 PM ANALYTICAL DATA MINER Plan of Treatment Health Maintenance Due Date [...] GONORRHOEAE/C. TRACHOMATIS AMPLIFICATION Routine 06/08/2023 9:12 AM ANALYTICAL DATA MINER Annual physical exam from Last 3 Months or Most Recently Relevant to Health Maintenance Results * N. gonorrhoeae/C. trachomatis Amplification Urine (06/08/2023 9:12 AM ANALYTICAL DATA MINER) C. trachomatis Not Detected [facility] Comment:Testing performed by : [facility], [address] [facility], [place]., [address] N. gonorrhoeae Not Detected ADEEL VITALE Comment: Interpretive Data This assay detects Chlamydia trachomatis and Neisseria gonorrhoeae by nucleic acid amplification testing (NAAT). This assay has been cleared by the [place] Food and Drug administration. The performance characteristics of this test have been verified by the [facility] Molecular Infectious Disease laboratory. The performance characteristics of this test have not been evaluated in individuals less than 14 years of age. Current Interpretive Data was last revised on 2023. Testing performed by: [facility], [address] [place]., [address] Urine (None) 06/08/2023 9:12 AM ANALYTICAL DATA MINER 06/08/2023 8:19 PM ANALYTICAL DATA MINER Chela Anguiano MD LAB MICROBIOLOGY - GENERAL O RDERABLES Final Result [facility] [id number] [place] [address] from Last 3 Months or Most Recently Relevant to Health Maintenance Insurance [facility] CHOICE PLUS [facility] PPO IDPA [id number] CHOICE PLUS [facility] PPO IDPA Advance Directives For more information, please contact: [phone] * Full Code (Latest Code Status on File) Date Activated Date Inactivated Comments 09/22/2018 5:22 PM 09/24/2018 7:35 PM Full CPR in case of cardiopulmonary arrest Care Teams Fire Control System Installer Relationship Specialty Start Date End Date Chela Anguiano MD [address] [place] [address] PCP - General Family Medicine 04/18/23
--- OUTSIDE RECORDS SUMMARY | 2024-09-28 21:04 | XMS_ITS | Encounter Summary ---
Author Organization [facility] Address [address] [place] [address] Care Team Providers Care Nurse Administrator Name Role Phone Naz Dey MD Primary Care Provider Encounter Details Date Type Department Care Team (Late st Contact Info) Description 2001 Outpatient Historical [facility] - [facility] [address] [facility] [facility] [address] [address] Marisol Brock MD [id number] [place] [address] Social History Tobacco Use Types Packs/Day Years Used Date Smoking Tobacco: Never Assessed Comments Unknown Sex and Gender Information Value Date Recorded Sex Assigned at Not on file Legal Sex Female 2:54 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
--- OUTSIDE RECORDS SUMMARY | 2024-09-28 21:04 | XMS_ITS | Clinical Summary ---
Author Organization [facility] Address [address] [place] [address] Phone Care Team Providers Care Compressor Repairer Name Role Phone Naz Dey MD Primary Care Provider [phone] Allergies No known active allergies Medications ondansetron [...] on file Legal Sex Female 2:54 AM RACKING TECHNICIAN Gender Identity Not on file Sexual Orientation Not on file Last Filed Vital Signs Vital Sign Reading Time Taken Comments Blood Pressure 110/68 06/19/2015 9:24 AM RACKING TECHNICIAN Pulse - - Temperature - - Respiratory Rate - - Oxygen Saturation - - Inhaled Oxygen Concentration - - Weight 78 kg (171 lb 15.3 oz) 06/19/2015 9:24 AM RACKING TECHNICIAN Height 168 cm (5' 6.14 ) 06/19/2015 9:24 AM RACKING TECHNICIAN Body Mass Index 27.64 06/19/2015 9:24 AM RACKING TECHNICIAN Plan of Treatment Health Maintenance Due Date Last Done Comments CHLAMYDIA SCREENING (ANNUAL) 11-24 YEARS 02/26/2012 HPV VACCINES (1 - 3-dose series) 02/26/2016 DTAP/TDAP/TD VACCINES (1 - Tdap) 02/26/2020 HEPATITIS B VACCINES (1 of 3 - 19+ 3-dose series) 02/12 CERVICAL CANCER SCREENING 2022 HPV/Cotest (21-29) 2022 PAP SMEAR 2022 INFLUENZA VACCINE (#1) 2023 Insurance [facility] Address: [facility] [address] [place] [address] Care Teams Compressor Repairer Relationship Specialty Start Date End Date Naz Dey MD PCP - General Pediatrics 04/15/15
--- OUTSIDE RECORDS SUMMARY | 2024-09-28 21:04 | XMS_ITS | Referral Summary ---
Author Organization [facility] Address [address] [place] [address] Care Team Providers Care Clinical Psychology Teacher Name Role Phone Chela Anguiano MD Primary Care Provider Allergies No known active allergies Medications No known medications Active Problems Problem Noted Date Diagnosed Date Annual physical exam 06/07/2023 Assessment & Plan (06/07/2023 4:19 PM TIE MAN): Doing well. BMI: 2401 (Normal) Recommend daily [...] 06/07/2023 Assessment & Plan (06/07/2023 4:18 PM TIE MAN): Chronic. Labs ordered Migraine headache 11/10/2014 Assessment & Plan (06/07/2023 4:17 PM TIE MAN): Chronic and stable.. MRI 2014 Minimally low [...] on file Legal Sex Female 6:49 AM TIE MAN Gender Identity Not on file Sexual Orientation Not on file Last Filed Vital Signs Vital Sign Reading Time Taken Comments Blood Pressure 94/56 06/07/2023 3:43 PM TIE MAN Pulse 67 06/07/2023 3:43 PM TIE MAN Temperature 36.4 C (97.5 F) 06/07/2023 3:43 PM TIE MAN Respiratory Rate 16 06/07/2023 3:43 PM TIE MAN Oxygen Saturation 99% 06/07/2023 3:43 PM TIE MAN Inhaled Oxygen Concentration - - Weight 69.9 kg (154 lb) 06/07/2023 3:43 PM TIE MAN Height 170.2 cm (5' 7 ) 06/07/2023 3:43 PM TIE MAN Body Mass Index 24.12 06/07/2023 3:43 PM TIE MAN Plan of Treatment Not on file Procedures Procedure Name Priority Date/Time Associated Diagnosis Comments N. GONORRHOEAE/C. TRACHOMATIS AMPLIFICATION Routine 06/08/2023 9:12 AM TIE MAN Annual physical exam from Last 3 Months or Most Recently Relevant to Health Maintenance Results * N. gonorrhoeae/C. trachomatis Amplification Urine (06/08/2023 9:12 AM TIE MAN) C. trachomatis Not Detected ADEEL VITALE Comment:Testing performed by : [facility], [address] [place]., [address] N. gonorrhoeae Not Detected ADEEL VITALE Comment: Interpretive Data This assay detects Chlamydia trachomatis and Neisseria gonorrhoeae by nucleic acid amplification testing (NAAT). This assay has been cleared by the [place] Food and Drug administration. The performance characteristics of this test have been verified by the [facility] Molecular Infectious Disease laboratory. The performance characteristics of this test have not been evaluated in individuals less than 14 years of age. Current Interpretive Data was last revised on 2023. Testing performed by: [facility], [address] [place]., [address] Urine (None) 06/08/2023 9:12 AM TIE MAN 06/08/2023 8:19 PM TIE MAN Chela Anguiano MD LAB MICROBIOLOGY - GENERAL O RDERABLES Final Result Performing Organization Address City/State/ZIP [place] Phone Number [facility]DEEL VIT[facility] [id number] [place] [address] from Last 3 Months or Most Recently Relevant to Health Maintenance Insurance [facility] CHOICE PLUS [facility] PPO IDPA Advance Directives For more information, please contact: [phone] * Full Code (Latest Code Status on File) Date Activated Date Inactivated Comments 09/22/2018 5:22 PM 09/24/2018 7:35 PM Full CPR in case of cardiopulmonary arrest Care Teams Clinical Psychology Teacher Relationship Specialty Start Date End Date Chela Anguiano MD [address] [place] [address] PCP - General Family Medicine 04/18/23
--- OUTSIDE RECORDS SUMMARY | 2024-09-28 21:04 | XMS_ITS | Encounter Summary ---
Author Organization [facility] Address [address] [facility] Attn: Epic Prelude [facility] [place] [address] Care Team Providers Care Engine Buildup Mechanic Name Role Phone Naz Dey MD Primary Care Provider [phone] Encounter Details Date Type Department Care Team (Late st Contact Info) Description 2001 Inpatient Historical Marisol Brock MD [address] [place] [id number] Single liveborn, born in hospital, delivered without mention of delivery (Primary Dx) Social History Tobacco Use Types Packs/Day Years Used Date Smoking Tobacco: Never Assessed Comments Unknown Sex and Gender Information Value Date Recorded Sex Assigned at Not on file Legal Sex Female 2:54 AM RISK CONTROL SPECIALIST Gender Identity Not on file Sexual Orientation Not on file documented as of this encounter Plan of Treatment Not on file documented as of this encounter Visit Diagnoses Diagnosis Single liveborn, born in hospital, delivered without mention of delivery- Primary documented in this encounter Care Teams Engine Buildup Mechanic Relationship Specialty Start Date End Date Naz Dey MD PCP - General Pediatrics 04/15/15 documented as of this encounter
--- NOTE | 2024-09-28 21:59 | ED_ITS ---
HPI - Extremity Injury (Lower) General Chief Complaint: Extremity Injury, Lower Stated Complaint: toe injury 1month ago, feels toe nail infected Time Seen by Provider: 09/28/24 20:45 Source: patient Mode of arrival: ambulatory Limitations: no limitations History of Present Illness HPI Narrative: This is a 24 year old female that presents to the ER for right great toe pain. Reports she injured the nail about a month ago. She was waiting for it to fall off on its own, but it hasn't yet. She keeps getting it caught on things and it is painful. Reports some bloody drainage from the toenail. Related Data Home Medications Medication Instructions Recorded Confirmed Last Taken Type prenat.vits,shannan,cle-lunv-eqsey 1 tablet PO DAILY 10/27/21 10/27/21 10/26/21 History Allergies Allergy/AdvReac Type Severity Reaction Status Date / Time No Known Allergies Allergy Verified 09/28/24 20:43 Review of Systems Review of Systems: CONSTITUTIONAL: Denies fever All systems reviewed & are unremarkable except as noted in HPI and below PMFSH Past Medical History Medical History Overweight (BMI 25.0-29.9) and not yet delivered Social History Social History Smoking status: Never smoker Substance use: never Spiritual care concerns: No Exam Narrative: GENERAL: Well-appearing, well-nourished, and in no acute distress. HEAD: Normocephalic, atraumatic. EYES: EOMI. EXTREMITIES: Normal range of motion. No edema or erythema. Right great toenail is largely avulsed with underlying bruising SKIN: Warm, dry, no rash. NEURO: No focal deficits. Alert and oriented x3. PSYCH: Normal mood and affect Course Vital Signs Vital signs: Vital Signs Temperature 98.8 F 09/28/24 20:28 Pulse Rate 64 09/28/24 20:28 Respiratory Rate 14 09/28/24 20:28 Blood Pressure 115/67 09/28/24 20:28 Pulse Oximetry 100 09/28/24 20:28 Oxygen Delivery Room Air 09/28/24 20:28 Temperature 98.8 F 09/28/24 20:28 Pulse Rate 64 09/28/24 20:28 Respiratory Rate 14 09/28/24 20:28 Blood Pressure 115/67 09/28/24 20:28 Pulse Oximetry 100 09/28/24 20:28 Oxygen Delivery Room Air 09/28/24 20:28 Procedures Other Procedure Procedure 1: Other Procedure: Right great toenail removal 1% lidocaine, 3 ccs Nail removed with forceps Hematoma was evacuated Nail bed is intact MDM - Extremity Injury (Lower) MDM Narrative Medical decision making narrative: Patient presents to the ER after an injury to the right great toenail. Original injury was about a month ago. Toenail was almost completely avulsed, but had not fallen off yet. She kept getting it caught on things and this was painful. There is a hematoma underneath her nail that was evacuated. There is no erythema, edema, abnormal drainage. Her nail bed is intact. Patient was instructed on further wound care. She will be given follow-up with Podiatry. She was given warnings to return to the ER Critical Care Time Critical Care Time Critical Care Time: No Discharge Plan Discharge Clinical Impression: Avulsion of toenail of right foot Patient Disposition: Home Condition: Stable Instructions: Nail Removal (ED) Additional Instructions: Return to the emergency department if you experience fever, redness or swelling of your wound, abnormal drainage from your wound, or any other symptoms that are concerning to you. Apply antibiotic ointment daily. Do not soak the wound. Clean with mild soap and water daily. Cover with a nonstick bandage Follow-up with podiatry Patient Language: Botswanan Prescriptions: No Action prenat.vits,shannan,ada-fsrc-vdbbe Tablet 1 tablet PO DAILY Follow-up/Referrals: Deisi Graham DPM [Physician] - Tiburcio,Naz Lobato MD [Primary Care Provider] -
== END 2024-09-28 22:46 | disposition home or self-care (01) ==
PROVIDERS: Emergency Provider Physician Assistant; PCP Pediatrics
DX: S91.201A Unspecified open wound of right great toe with damage to nail, initial encounter (principal); X58.XXXA Exposure to other specified factors, initial encounter
CPT/HCPCS: 11740; 99282